=== PATIENT | male | born 1950 | race Asian ===

== ENCOUNTER 2018-12-18 10:11 | Observation (INO) | payer MEDICARE ==
[~2018-12-18] VITALS: Ht 165.1 cm; Wt 67.6 kg
[~2018-12-18 10:11] MED LIST: CATAPRES-TTS 11 EACH TOP; FEOSOL325 MG PO; FUROSEMIDE40 MG PO; Hydralazine Hcl PO; LISINOPRIL2.5 MG PO; PANTOPRAZOLE SO40 MG PO; TRANDATE100 MG PO; WARFARIN SODIU2.5 MG PO
[2018-12-18] MEDS ORDERED: FUROSEMIDE INJ 10 MG/ML 10 ML VIAL IV NR (10:45)
[2018-12-18] MEDS ORDERED: NITROGLYCERIN 2% OINT 1 GM PKT TOP ONE (10:45)
[2018-12-18] MEDS ORDERED: NIFEDIPINE 10 MG CAP PO NR (11:00)
[2018-12-18 11:11] LABS: BASOPHILS % 0.6 % (0.0-1.0); EOSINOPHILS # (AUTO) 0.6 (0.0-0.4); EOSINOPHILS % 8.4 % (0.0-6.0); HEMATOCRIT 33.3 % (38.2-49.6); HEMOGLOBIN 9.6 g/dL (14.0-18.0); LYMPHOCYTES # (AUTO) 0.9 (1.0-3.2); LYMPHOCYTES % 13.3 % (18.0-39.1); MEAN CORPUSCULAR HEMOGLOBIN 29.8 pg (28-32); MEAN CORPUSCULAR HGB CONC 28.8 g/dL (31-35); MEAN CORPUSCULAR VOLUME 103.4 fL (81-99); MONOCYTES # (AUTO) 0.4 (0.2-0.8); MONOCYTES % 6.1 % (4.4-11.3); NEUTROPHILS % 71.3 % (38.7-80.0); PLATELET COUNT 157 x10e3/uL (140-360); RED BLOOD COUNT 3.22 x10e6/uL (4.3-5.7); RED CELL DISTRIBUTION WIDTH 15.5 % (11.7-14.4)
[2018-12-18 11:30] LABS: ANION GAP 22.5 mmol/L (8-16); CALCIUM 10.4 mg/dL (8.4-10.2); CREATININE, SERUM 12.61 mg/dL (0.72-1.25); POTASSIUM 5.5 mmol/L (3.5-5.1)
--- NOTE | 2018-12-18 11:50 | Diagnostic Imaging Report ---
Frontal and lateral views of the chest. HISTORY: Shortness of breath, breathing distress COMPARISON: None available. DISCUSSION: Lungs and pleura: Bilateral diffuse increased interstitial and airspace opacities, left greater than right. [place] opacity at the left lower thorax with adjacent atelectasis. Underlying pathology could be obscured. Heart and mediastinum: The cardiac silhouette is predominantly obscured. Bones and soft tissues: A metallic stent projects at the superior aspect of the mediastinum. IMPRESSION: 1. Diffusely increased interstitial and airspace opacities, most notably at the left mid to lower lung. Differential considerations include asymmetric pulmonary edema, multifocal pneumonia, and/or aspiration. 2. Moderate left pleural effusion with adjacent prominent atelectasis. 3. Recommend short term follow up routine PA and lateral chest radiographs, in 6-8 weeks, to evaluate for resolution. Signed by: Dr. Fredy Swanson D.O., M.M.M. on 12/18/2018 11:47 AM
[2018-12-18 12:28] LABS: CREATINE KINASE MB 2.4 ng/mL (0-5.0)
--- NOTE | 2018-12-18 12:53 | NUR ---
SPOKE WITH LAURIE AT [facility] TO INITIATE STAT DIALYSIS TREATMENT, INFORMED THAT DR MONDRAGON NEEDS [facility] NURSE TO CALL HIM FOR FURTHER ORDERS. CALLED #[phone]
[2018-12-18] MEDS ORDERED: CALCIUM ACETAT667 M1 PO (13:39)
[2018-12-18] MEDS ORDERED: RENAGEL800 MG PO (13:39)
[2018-12-18] MEDS ORDERED: CLONIDINE HCL0.2 MG PO (13:39)
[2018-12-18] MEDS ORDERED: ESIDRIX25 MG PO (13:39)
[2018-12-18] MEDS ORDERED: LOSARTAN POTAS100 MG PO (13:39)
[2018-12-18] MEDS ORDERED: AMLODIPINE BESY10 MG PO (13:39)
--- NOTE | 2018-12-18 14:57 | NUR ---
RECEIVED CALL FROM HD NURSE, STATED HE WAS ON HIS WAY.
[2018-12-18] MEDS ORDERED: SODIUM CHLORIDE FLUSH 10 ML SYR INJ PRN (16:00)
--- OUTSIDE RECORDS SUMMARY | 2018-12-18 16:02 | XMS REPORT ---
Author Author [facility] Address Unknown Phone Unavailable Care Team Providers Care Vascular Radiologist Name Role Phone Becca AHUAJ Unavailable Unavailable Problems This patient has no known problems. Allergies, Adverse Reactions, Alerts This patient has no known allergies or adverse reactions. Medications This patient has no known medications. Results Test Description Test Time Test Comments Text Results Atomic Results Result Comments CHEST 2 VIEWS 2018-12-18 11:42:00 [place] [address] Patient Name: VANIA LEIGH MR #: [id number] : 1950 Age/Sex: 68/M Req #: [id number] Adm Physician: Ordered by: ELSIE AHUJA MD Report #: [id number] Location: ER Room/Bed: Procedure: [id number] DX/CHEST 2 VIEWS Exam Date: 12/18/18 Exam Time: 1053 REPORT STATUS: Signed Frontal and lateral views of the chest. HISTORY: S hortness of breath, breathing distress COMPARISON: None available. DISCUSSION: Lungs and pleura: Bilateral diffuse increased interstitial and airspace opacities, left greater than right. [place] opacity at the left lower thorax with adjacent atelectasis. Underlying pathology could be obscured. Heart and mediastinum: The cardiac silhouette is predominantly obscured. Bones and soft tissues: A metallic stent projects at the superior aspect of the mediastinum. IMPRESSION: 1. Diffusely increased interstitial and airspace opacities, most notably at the left mid to lower lung. Differential considerations include asymmetric pulmonary edema, multifocal pneumonia, and/or aspiration. 2. Moderate left pleural effusion with adjacent prominent atelectasis. 3. Recommend short term follow up routine PA and lateral chest radiographs, in 6- 8 weeks, to evaluate for resolution. Signed by: Dr. Nathalie Swanson D.O., M.M.M. on 12/18/2018 11:47 AM Dictated By: NATHALIE SWANSON DO [id number] Transcribed By: FABIÁN on 12/18/18 1147 COPY TO: ELSIE AHUJA MD
--- NOTE | 2018-12-18 16:45 | NUR ---
Patient arrived from ER via stretcher with multiple family members at the bedside. Patient is awake and alertx3, very pleasant and in NAD. Per patient he missed his dialysis treatment and started feeling SOB at home. POC discussed. Pt instructed to call for assistance as needed and verbalized understanding. Patient and family aware we are waiting on dialysis nurse to arrive to start treatment. Per she administered Clonidine 0.1mg PO, Losartan 100mg PO, and HCTZ 25mg PO prior to coming over to the room. educated on not administering any medications without MD authorizing them.
[2018-12-18 17:00] VITALS: BP 190/90
[2018-12-18 17:02] VITALS: BP 190/89
--- NOTE | 2018-12-18 17:06 | NUR ---
Dialysis nurse on unit, aware of patient needing dialysis.
[2018-12-18] MEDS ORDERED: CLONIDINE HCL0.1 MG PO ×2 (18:30)
[2018-12-18] MEDS ORDERED: RENA-VITE RX T1 EACH PO (18:30)
[2018-12-18] MEDS ORDERED: DOXAZOSIN MESYLA2 MG PO (18:30)
--- NOTE | 2018-12-18 19:00 | NUR ---
Report and rounds completed. Patient in bed in high semi-lujan position getting hemodialysis with dialysis nurse at bedside. Call light within reach. Will continue to monitor.
[2018-12-18 19:14] LABS: INR 1.09; PROTHROMBIN TIME 14.6 seconds (11.9-14.5)
[2018-12-18 19:15] LABS: PARTIAL THROMBOPLASTIN TIME 43.8 seconds (23.8-35.5)
[2018-12-18 19:26] LABS: CREATINE KINASE MB 2.2 ng/mL (0-5.0)
[2018-12-18 20:00] VITALS: BP 171/94
--- NOTE | 2018-12-18 20:03 | NUR ---
Call To Dr Martínez, Patient reports headache 02/20 and no pain medication. Tylenol 650 mg po Q 6 hrs PRN pain, [place] 5/325 mg po Q 6 hrs PRN pain. Updated patient on new orders.
[2018-12-18] MEDS ORDERED: HYDROCODONE/APAP 5MG-325MG TAB PO PRN (20:15)
[2018-12-18] MEDS: DOXAZOSIN MESYLATE 2 MG TAB PO SCH (20:37)
[2018-12-18] MEDS: ACETAMINOPHEN 325 MG TAB PO PRN (20:38)
[2018-12-18] MEDS ORDERED: CLONIDINE HCL 0.1 MG TAB PO SCH (21:00)
--- NOTE | 2018-12-18 22:13 | NUR ---
Spoke with Dr Martínez for PRN blood pressure medication, BP 177/94, 68 after scheduled meds. Hydralazine 10mg IV Q 4 hrs PRN SBP > 180.
[2018-12-18] MEDS ORDERED: HYDRALAZINE HCL 20 MG/ML VIAL IV PRN (22:30)
[2018-12-19] VITALS (7 sets, daily range): BP systolic 163–197; BP diastolic 83–100
[2018-12-19] MEDS: ACETAMINOPHEN 325 MG TAB PO PRN (02:35)
--- NOTE | 2018-12-19 04:10 | NUR ---
Tele called and stated HR dropped down to 38. Tele checked and green lead off. Reapplied. HR back up to 50's. Will continue to monitor closely.
[2018-12-19 04:40] LABS: ANION GAP 16.9 mmol/L (8-16); CALCIUM 9.1 mg/dL (8.4-10.2); CREATININE, SERUM 9.32 mg/dL (0.72-1.25); POTASSIUM 4.9 mmol/L (3.5-5.1)
[2018-12-19 04:52] LABS: CREATINE KINASE MB 1.7 ng/mL (0-5.0)
--- NOTE | 2018-12-19 05:35 | NUR ---
to nurses station, stating " I think it is hydralazine that gives him a headaches." Patient assessed BP 197/88, 63. Patient states " my headache is worse because I think the meds caused my headache to be worse." Will medicate for pain and continue to monitor.
--- NOTE | 2018-12-19 06:15 | Diagnostic Imaging Report ---
Examination: Single AP view of the chest. COMPARISON: 12/18/2018 INDICATION: Effusion DISCUSSION: Lines/tubes: Vascular stent. Lungs: Stable left pleural effusion with adjacent atelectasis. Additional pathology may be obscured. Pulmonary venous congestion, decreased. Heart and mediastinum: Heart is enlarged. Bones and soft tissues: No acute bony abnormalities. IMPRESSION: Stable left effusion with adjacent atelectasis. Additional pathology may be obscured. Pulmonary venous congestion, decreased. Signed by: Dr. Luis Felipe Roberts M.D. on 12/19/2018 6:11 AM
--- NOTE | 2018-12-19 06:31 | NUR ---
Tele called and HR dropped down into 40's. Celestino lead off, reapplied lead. HR in 60's. Will continue to monitor.
[2018-12-19 06:45] LABS: BASOPHILS % 0.4 % (0.0-1.0); EOSINOPHILS # (AUTO) 0.6 (0.0-0.4); EOSINOPHILS % 11.9 % (0.0-6.0); HEMATOCRIT 23.5 % (38.2-49.6); HEMOGLOBIN 7.7 g/dL (14.0-18.0); LYMPHOCYTES # (AUTO) 0.9 (1.0-3.2); LYMPHOCYTES % 17.8 % (18.0-39.1); MEAN CORPUSCULAR HEMOGLOBIN 29.7 pg (28-32); MEAN CORPUSCULAR HGB CONC 32.8 g/dL (31-35); MEAN CORPUSCULAR VOLUME 90.7 fL (81-99); MONOCYTES # (AUTO) 0.4 (0.2-0.8); MONOCYTES % 8.8 % (4.4-11.3); NEUTROPHILS % 60.9 % (38.7-80.0); PLATELET COUNT 155 x10e3/uL (140-360); RED BLOOD COUNT 2.59 x10e6/uL (4.3-5.7); RED CELL DISTRIBUTION WIDTH 14.9 % (11.7-14.4)
[2018-12-19] MEDS: CALCIUM ACETATE 667 MG GELCAP PO SCH ×3 (08:00→17:00)
--- NOTE | 2018-12-19 08:25 | NUR ---
Notified Dr Martínez regarding HR dropping to 30, new consult to Dr Garcia, patient not in any distress
[2018-12-19] MEDS ORDERED: SODIUM CHLORIDE 0.9% 1000ML 1,000 ML ONE (08:54)
[2018-12-19] MEDS ORDERED: CLONIDINE HCL 0.2 MG TAB PO SCH (09:00)
[2018-12-19] MEDS: FOLIC ACID/CYANOCOB/PYRIDOXINE TAB PO SCH (09:00)
[2018-12-19] MEDS ORDERED: AMLODIPINE BESYLATE 10 MG TAB PO SCH (09:00)
[2018-12-19] MEDS: LOSARTAN POTASSIUM 100 MG TAB PO SCH (09:00)
[2018-12-19] MEDS: NIFEDIPINE CR 30 MG TAB PO SCH ×2 (09:30→14:30)
[2018-12-19 11:22] LABS: THYROID STIMULATING HORMONE 3.66 uIU/mL (0.350-4.940)
--- NOTE | 2018-12-19 11:51 | History and Physical ---
CHIEF COMPLAINT: Shortness of breath and pulmonary edema. HISTORY OF PRESENT ILLNESS: This gentleman is a 68-year-old male with past medical history of ESRD on dialysis, anemia of ESRD, secondary hyperparathyroidism, uncontrolled hypertension, who comes into the ED with complaints of shortness of breath that began yesterday. The patient reports he is a Wednesday, Wednesday, Wednesday dialysis patient, he missed dialysis on Wednesday due to a son's wedding and presented back into our ER due to shortness of breath and respiratory distress. The patient received hemodialysis last night with increased ultrafiltration. Today, the patient reports having some increased shortness of breath and he is currently receiving hemodialysis. The patient's blood pressure is extremely elevated and medications were adjusted accordingly. He did develop some bradycardia last night in which Cardiology now has been consulted. The patient is seen and evaluated at bedside on the medical floor and he is currently doing much better. He is on nasal cannula. He is not short of breath, but he is still on oxygen, which he is not at home. REVIEW OF SYSTEMS: Pertinent positives: He had bradycardia and shortness of breath. Pertinent negatives: Denies any chest pain, palpitation, nausea, vomiting, diarrhea, dysuria, hematuria, frequency, urgency, lightheadedness, dizziness, abdominal pain, headache, cough, congestion, fever, or any other complaints. The rest of 14-point review of systems have been reviewed with the patient and are negative. ALLERGIES: NO KNOWN DRUG ALLERGIES. HOME MEDICATIONS: Furosemide 40 mg daily; hydrochlorothiazide 25 mg daily; amlodipine 10 mg daily; PhosLo 667 mg two tabs p.o. t.i.d. with meals; clonidine 0.1 mg in the morning, 0.1 mg at bedtime, and 0.2 mg in the afternoon; doxazosin 2 mg at bedtime; losartan 100 mg daily. He also takes vitamin B complex. PAST MEDICAL HISTORY: ESRD on dialysis, hypertension, anemia of ESRD, secondary hyperparathyroidism. PAST SURGICAL HISTORY: Has left AV fistula creation. FAMILY HISTORY: Hypertension and diabetes. SOCIAL HISTORY: No drugs. No alcohol. Does not smoke. Lives . He is . PHYSICAL EXAMINATION: VITAL SIGNS: Temperature is 98.6, pulse 70, respiratory rate is 18, blood pressure is 193/92, and his pulse ox is 96% on nasal cannula. GENERAL: Not in acute distress. Alert and oriented x3. Cooperative on examination. HEENT: Head is normocephalic and atraumatic. Eyes; pupils are equal, round, and reactive to light bilaterally. Extraocular movements are intact bilaterally. Throat, no evidence of NECK: Supple. Good range of motion. PULMONARY: Clear to auscultation bilaterally. No wheezing, no rales, no rhonchi, no crackles appreciated. CARDIOVASCULAR: Positive S1, S2. No murmurs, rubs, or gallops appreciated. NEUROLOGICAL: Cranial nerves 2 through 12 grossly intact. No evidence of any neurological deficits on exam. SKIN: Intact. Warm to touch. Good cap refill. PSYCHIATRIC: Normal affect and mood. EXTREMITIES: No edema. Good range of motion throughout. LABORATORY DATA: Lab findings show white count is 4.8, hemoglobin is 7.7, hematocrit is 23.5, his platelets are 155. His coagulation; PT 14, INR 1, PTT 43. Chemistry; sodium is 141, potassium 4.9, chloride 100, bicarb 29, anion gap of 16, BUN is 35, creatinine is 9.3, his glucose is 78, calcium is 9.1. His troponins were all negative x3. CK was 110. MICROBIOLOGY: None. IMAGING STUDIES: Chest x-ray this morning shows some pulmonary venous congestion, which has decreased. His chest x-ray on 12/18/2018 shows evidence of pulmonary edema, moderate left pleural effusion seen. IMPRESSION: 1. Respiratory distress secondary to pulmonary edema secondary to missing hemodialysis. 2. End-stage renal disease, on dialysis. 3. Anemia of end-stage renal disease. 4. Uncontrolled hypertension. 5. Bradycardia. PLAN: The patient received hemodialysis last night with increased ultrafiltration, he is currently receiving dialysis as we speak. Nephrology was consulted and they will manage the dialysis. In relation to his high blood pressure, medications were adjusted accordingly. Clonidine is likely causing a rebound hypertension which started nifedipine XL 60 mg daily and held the clonidine and resume the rest of the antihypertensive that he takes at home. We will monitor that very closely. He is on p.r.n. hydralazine. His heart rate also dropped into the 30s last night, this was informed to me by the nursing staff. I will go ahead and consult with Cardiology for further evaluation. The patient is now on beta-blockers based on the medication reconciliation form. Otherwise, the patient will likely be here overnight to be monitored very closely in terms of his heart rate and blood pressure. He continues to still be on oxygen despite two dialysis treatments. In the even of continued shortness of breath, we will get a CT scan of his chest to further evaluate. MD TITA Golden/TREVOR /[id number]
[2018-12-19] MEDS ORDERED: EPOETIN ALFA 10000 UNIT/ML VIAL SC SCH (15:45)
[2018-12-19] MEDS ORDERED: CLONIDINE HCL 0.1 MG TAB PO SCH (16:30)
--- NOTE | 2018-12-19 17:07 | Consultation ---
DATE OF CONSULTATION: 12/19/2018 REASON FOR CONSULTATION: Bradycardia. HISTORY OF PRESENT ILLNESS: This is a 68-year-old male with history of end- stage renal disease since 2015, on HD therapy Wednesday, Wednesday, and Wednesday with Dr. Verde, hypertension. The patient presents to [facility] with apparent complaints of shortness of breath for about 2 weeks chest x-ray noted with pulmonary edema. The patient is on dialysis. However, this morning, the patient was noted with periods of bradycardia and heart rates in the 30s. Therefore, cardiology was consulted to evaluate the patient. The patient is seen in room, in no acute distress, on HD therapy. Reports that for the past 2 weeks plus, he has been more short of breath with orthopnea, lower extremity edema. So, he came to the hospital for further evaluation. The patient denies any chest pains, however, positive for shortness of breath. Positive orthopnea. Positive for lower extremity edema. Tele was noted and reviewed. Does have episodes of sinus olga with first-degree AV block, however, no pauses were noticed. PAST MEDICAL HISTORY: End-stage renal disease since 2016 on Wednesday, Wednesday, Wednesday schedule and hypertension. PAST SURGICAL HISTORY: Left AV fistula. SOCIAL HISTORY: He is . 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 Denies any alcohol use or tobacco use. FAMILY HISTORY: He reports mother at age of 82 of unknown reasons. Father at age of 56, apparently complications of "stomach issues." HOME MEDICATIONS: Include amlodipine 10 mg once a day, calcium acetate two tablets p.o. t.i.d. Wednesday, Wednesday, clonidine 0.1 mg t.i.d., Lasix 40 mg daily, doxazosin 2 mg p.o. daily, losartan 100 mg p.o. daily, hydrochlorothiazide 25 mg p.o. daily. REVIEW OF SYSTEMS: GENERAL: Positive for weight gain, positive fatigue, weakness. Denies any fevers, chills, night sweats. SKIN: No rashes, sores, or lumps. HEENT: Denies any nausea, vomiting, vision changes, blurred vision, double vision, earaches, epistaxis, hoarseness, sore throat, swollen neck. CARDIAC: Denies any chest pain. Positive for dyspnea on exertion. Positive for orthopnea. Positive for PND. Positive for lower extremity edema. RESPIRATORY: Positive for shortness of breath. Denies any coughing, wheezing, hemoptysis. GI: Reports good appetite. Denies any nausea or vomiting, any hematemesis, melena, hematochezia. URINARY: Denies any urgency, polyuria, hematuria, dysuria. VASCULAR: Positive for lower extremity edema. MUSCULOSKELETAL: Positive for generalized joint pains. NEUROLOGIC: Positive for numbness, tingling in lower extremities. Denies any blackouts, fainting, or seizures. HEMATOLOGIC: Denies any anemia or easy bruising. ENDOCRINE: Denies any heat or cold intolerance, any polyuria, polydipsia, polyphagia. PHYSICAL EXAMINATION: VITAL SIGNS: Height 65 inches, 149 pounds, BMI 24. Temperature 98.6, pulse 78, respiratory rate 18, blood pressure 193/92, pulse ox 96% on 2 L nasal cannula. GENERAL: Appears stated age, reliable informant, in no acute distress. SKIN: No rashes or bruises noted. HEENT: Normocephalic. Pupils are equal and reactive. Extraocular movements intact. Trachea midline. Oral mucosa pink. NECK: Soft carotid bruit noted on the left side. No JVD noted. HEART: Regular rate and rhythm. Positive systolic murmur, loudest at the right upper sternal border. PMI about 4th, 5th intercostal space. LUNGS: Bilateral breath sounds with crackles noted. ABDOMEN: Soft, nontender, nondistended. No organomegaly noted. MUSCULOSKELETAL: Good muscle strength throughout. VASCULAR: +2 bilateral radial pulses, +1 DP/PT pulses bilaterally, +1 lower extremity edema. Also noted left AV fistula with bruit and thrill. NEUROLOGIC: Cranial nerves II through XII seem intact. LABORATORY DATA: White count 4, hemoglobin 7.7, hematocrit 23, platelets 155. Chemistry; sodium 141, potassium 4.9, chloride 100, BUN 35, creatinine 9.3. Troponin 0.08, 0.1, 0.1. Chest x-ray showing pulmonary congestion. EKG was sinus rhythm. ASSESSMENT: 1. Volume overloaded. 2. End-stage renal disease, on HD therapy. 3. Hypertension. 4. Anemia. 5. Bradycardia with intermittent first-degree AV block. PLAN: 1. The patient presents with volume overload, on HD therapy being dialyzed currently noted with periods of bradycardia. Tele reviewed. Heart rates in the upper 30s. Appears to be sinus rhythm with a first-degree AV block. The patient denies any dizziness, lightheadedness, and passing out or syncope episodes. 2. We will discontinue his clonidine and avoid IV blocking agents. 3. We will go ahead and get a TSH. 4. We will obtain echo to evaluate heart function and structure and does seem to have a systolic murmur. 5. Continue telemonitoring. Thank you very much for this consult. We will follow the patient and adjust cardiac therapy as clinical course dictates. SEEN AND EXAMINED DISCUSS WITH PATIENT AND Dictated by Jeff Osman, SUNIL Laila Garcia MD DC/TREVOR /[id number] CIRO
--- NOTE | 2018-12-19 17:27 | Consultation ---
DATE OF CONSULTATION: HISTORY OF PRESENT ILLNESS: This is a 68-year-old male with end-stage renal disease, on hemodialysis Wednesday, Wednesday, and Wednesday, who comes into the emergency room complaining of shortness of breath. The patient missed his dialysis on Wednesday. Currently, he is here with shortness of breath. Also, he was found to be bradycardic. PAST MEDICAL HISTORY: 1. ESRD, on hemodialysis. 2. Hypertension. 3. Secondary hyperparathyroidism. ALLERGIES: NO KNOWN DRUG ALLERGIES. PAST SURGICAL HISTORY: AV access placement. FAMILY HISTORY: Hypertension and type 2 diabetes mellitus. CURRENT MEDICATIONS: Include Lasix, hydrochlorothiazide, amlodipine, PhosLo, clonidine, doxazosin, losartan. SOCIAL HISTORY: No smoking. No alcohol. No drugs. REVIEW OF SYSTEMS: Positive shortness of breath. No chest pain. No blood in the stool. No blood in the urine. No sensory loss. No motor loss. No skin changes. No enlarged lymph nodes. No chest pain. No change in vision. No change basically otherwise all review of systems was negative except for shortness of breath. PHYSICAL EXAMINATION: VITAL SIGNS: Blood pressure 163/87, pulse 70. GENERAL: Alert, following commands HEENT: Pupils are equal and reactive to light and accommodation. NECK: No JVD. No bruits. LUNGS: No rhonchi. No rales. HEART: Regular rate and rhythm. No S3. No S4. ABDOMEN: Nontender, nondistended. No hepatomegaly or splenomegaly. EXTREMITIES: No clubbing, no cyanosis, no edema. NEUROLOGIC: Cranial nerves 2 through 12 are grossly intact. Sensation intact. Motor intact. SKIN: No lesions. LABORATORY DATA: White count 4.8, hemoglobin is 7.7, hematocrit is 23.5. Sodium 141, potassium 4.9, chloride 100, creatinine 9.32. Chest x-ray; left effusion with adjacent atelectasis, pulmonary venous congestion, this was done at 6 in the morning. ASSESSMENT AND PLAN: 1. End-stage renal disease with volume overloaded secondary to the patient missing dialysis. The patient was dialyzed last night and today. 2. Anemia of chronic disease. The patient is on Epogen. If hemoglobin continue to decrease, we will need to evaluate. For now, we will check stool guaiac. 3. Bradycardia. Currently, Cardiology is consulted. 4. Hypertension. Currently better after ultrafiltration. Nicholas Mcelroy MD MA/TREVOR /[id number]
--- NOTE | 2018-12-19 18:11 | NUR ---
patient up in bed talking to visitors, not in any distress, call light in reach
--- NOTE | 2018-12-19 19:00 | NUR ---
Report and rounds completed. Patient in bed with visitors at bed side. Call light within reach. Will continue to monitor.
[2018-12-19] MEDS: DOXAZOSIN MESYLATE 2 MG TAB PO SCH (21:44)
[2018-12-20 00:29] VITALS: BP 157/77
[2018-12-20 04:30] VITALS: BP 152/81
[2018-12-20 05:23] LABS: BASOPHILS % 0.4 % (0.0-1.0); EOSINOPHILS # (AUTO) 0.7 (0.0-0.4); EOSINOPHILS % 14.4 % (0.0-6.0); HEMATOCRIT 24.7 % (38.2-49.6); LYMPHOCYTES % 21.8 % (18.0-39.1); MEAN CORPUSCULAR HEMOGLOBIN 29.7 pg (28-32); MEAN CORPUSCULAR HGB CONC 32.4 g/dL (31-35); MEAN CORPUSCULAR VOLUME 91.8 fL (81-99); MONOCYTES # (AUTO) 0.5 (0.2-0.8); MONOCYTES % 10.8 % (4.4-11.3); NEUTROPHILS # (AUTO) 2.5 (2.1-6.9); NEUTROPHILS % 52.4 % (38.7-80.0); PLATELET COUNT 153 x10e3/uL (140-360); RED BLOOD COUNT 2.69 x10e6/uL (4.3-5.7); RED CELL DISTRIBUTION WIDTH 14.7 % (11.7-14.4)
[2018-12-20 05:42] LABS: ANION GAP 11.1 mmol/L (8-16); CALCIUM 9.3 mg/dL (8.4-10.2); CREATININE, SERUM 6.72 mg/dL (0.72-1.25); POTASSIUM 4.1 mmol/L (3.5-5.1)
--- NOTE | 2018-12-20 06:14 | Diagnostic Imaging Report ---
EXAMINATION: CHEST 2 VIEWS INDICATION: ^pleural effusion COMPARISON: Chest x-ray 12/19/2018. 12/18/2018. FINDINGS: PA and lateral views TUBES and LINES: Left subclavian stent seen in the midline. LUNGS: Lungs are well inflated. Mild right basilar atelectasis/consolidation. Dense left basilar atelectasis and/or consolidation. Improving central pulmonary venous congestion. PLEURA: Stable small to moderate left pleural effusion. HEART AND MEDIASTINUM: Cardiac size is moderately enlarged. BONES AND SOFT TISSUES: No acute osseous lesion. Soft tissues are unremarkable. UPPER ABDOMEN: No free air under the diaphragm. IMPRESSION: 1. Unchanged bibasilar atelectasis and/or consolidation, especially in the left lung base. Stable small left pleural effusion. 2. Improving central pulmonary venous congestion. Signed by: Dr. Migue Iqbal M.D. on 12/20/2018 6:10 AM
[2018-12-20 07:31] VITALS: BP 176/92
[2018-12-20] MEDS: CALCIUM ACETATE 667 MG GELCAP PO SCH (09:09)
[2018-12-20] MEDS: LOSARTAN POTASSIUM 100 MG TAB PO SCH (09:09)
[2018-12-20] MEDS: NIFEDIPINE CR 30 MG TAB PO SCH (09:09)
[2018-12-20] MEDS: FOLIC ACID/CYANOCOB/PYRIDOXINE TAB PO SCH (09:09)
[2018-12-20] MEDS ORDERED: DOCUSATE SODIUM 100 MG CAP PO PRN (10:45)
[2018-12-20] MEDS ORDERED: NIFEDIPINE ER30 M1 PO (11:19)
[2018-12-20 11:23] VITALS: BP 213/99
--- NOTE | 2018-12-20 12:20 | NUR ---
Rechecked BP Manually 170/80 p-68, not in any distress, patient refused any PRN BP medications, he stated its BP usually like this when he is not on Dialysis . md ch
[2018-12-20 12:25] VITALS: BP 168/70
--- NOTE | 2018-12-20 13:15 | NUR ---
patient discharged home, prescription given, IV canula removed with tip intact, not any distress o SOB, at bed side taking him home, [facility]
--- NOTE | 2018-12-20 16:54 | Discharge Summary ---
FINAL DISCHARGE DIAGNOSES: 1. Respiratory distress secondary to pulmonary edema after missing hemodialysis, now improved. 2. End-stage renal disease, on dialysis. 3. Anemia of end-stage renal disease. 4. Uncontrolled hypertension. 5. Bradycardia secondary to AV dale blockers from clonidine. CONSULTANTS: Cardiology and Nephrology. PHYSICAL EXAMINATION: VITAL SIGNS: Temperature is 97.9, pulse 79, respiratory rate is 18, blood pressure 152/81, pulse ox is 96% on room air. LABORATORY DATA: Labs show white count 4.7, hemoglobin 8, hematocrit is 24.7, and platelets of 153. Chemistry; sodium 137, potassium 4.9, chloride 99, bicarb 31, anion gap 11, BUN 26, creatinine 6.7, glucose is 88, calcium is 9.3, LDL 68, TSH is 3.6. MICROBIOLOGY: None. IMAGING STUDIES: Chest x-ray on admission showed pulmonary edema. Repeat chest x-ray on 12/20/2018 shows small left stable effusion. Much improved central pulmonary venous congestion. HOSPITAL COURSE: This is a 68-year-old male with known history of ESRD on dialysis, uncontrolled hypertension, who presented after complaints of shortness of breath after missing hemodialysis last Wednesday on his normal schedule due to a wedding. The patient was admitted and Nephrology was consulted. The patient received dialysis treatments while here in the hospital with no issues. He had increased ultrafiltration. In relation to his blood pressures, medications were adjusted accordingly with much improved blood pressure prior to being discharged home. He was found to be in sinus bradycardia in which Cardiology was consulted. It was felt that the patient's clonidine is likely leading to his underlying bradycardia and recommend discontinuing clonidine on discharge. The patient has been cleared by Cardiology and Nephrology for discharge home. The patient is doing well with no other issues. On the day of discharge, vital signs are stable, labs reviewed and stable. The patient seen, evaluated, and examined thoroughly on the day of discharge, no other complaints. The patient verbalized understanding and agreed with the plan of care, to follow up as an outpatient with the primary care physician in 1 week and the seaman officer in 2 weeks' time. The patient also advised to follow up tomorrow. MEDICATIONS: See med reconciliation form including nifedipine XL 60 mg daily. DISPOSITION: Home. CONDITION: Stable. DIET: Renal. In any event of new or worsening symptoms, the patient is advised to come back to the ED for further evaluation. Discharge summary took greater than 35 minutes. MD TITA Golden/TREVOR /[id number]
== END 2018-12-20 13:10 | disposition home or self-care (01) ==
LOC: ER 10:11 → ERHOLD 16:00 → IMCU 16:45
PROVIDERS: ADMIT Internal Medicine; ATTEND Internal Medicine
DX: E87.70 Fluid overload, unspecified (principal); I13.2 Hypertensive heart and chronic kidney disease with heart failure and with stage 5 chronic kidney disease, or end stage renal disease; N18.6 End stage renal disease; I50.9 Heart failure, unspecified; Z99.2 Dependence on renal dialysis; D63.1 Anemia in chronic kidney disease; N25.81 Secondary hyperparathyroidism of renal origin; Z83.3 Family history of diabetes mellitus; Z82.49 Family history of ischemic heart disease and other diseases of the circulatory system; R06.03 Acute respiratory distress; R00.1 Bradycardia, unspecified; I44.0 Atrioventricular block, first degree; Z91.15 Patient's noncompliance with renal dialysis
CPT/HCPCS: 36415 ×3; 71045; 71046 ×2; 80048 ×3; 80061 ×2; 82550 ×2; 82553 ×2; 84443; 84484 ×2; 85025 ×3; 85610; 85730; 86704; 86706; 86707; 90937; 93005; 93306; 99284; G0378 ×3; J0360; J1940; J7030; Q4081

== ENCOUNTER 2019-01-06 02:34 | Inpatient (IN) | payer MEDICARE ==
[~2019-01-06] VITALS: Ht 165.1 cm; Wt 60.9 kg
[~2019-01-06 02:34] MED LIST changes: +AMLODIPINE BESY10 MG PO; +CALCIUM ACETAT667 M1 PO; +CLONIDINE HCL0.1 MG PO; +CLONIDINE HCL0.2 MG PO; +DOXAZOSIN MESYLA2 MG PO; +ESIDRIX25 MG PO; +LOSARTAN POTAS100 MG PO; +NIFEDIPINE ER30 M1 PO; +RENA-VITE RX T1 EACH PO; +RENAGEL800 MG PO
[2019-01-06] MEDS ORDERED: NITROGLYCERIN 2% OINT 1 GM PKT ONE (02:44)
[2019-01-06] MEDS ORDERED: FUROSEMIDE INJ 10 MG/ML 4 ML VIAL ONE (02:44)
[2019-01-06] MEDS ORDERED: NITROGLYCERIN 2% OINT 1 GM PKT TOP ONE (02:45)
[2019-01-06] MEDS ORDERED: FUROSEMIDE INJ 10 MG/ML 10 ML VIAL IV ONE (02:45)
[2019-01-06] MEDS ORDERED: FUROSEMIDE INJ 10 MG/ML 2 ML VIAL ONE (02:46)
[2019-01-06 02:50] LABS: BASOPHILS % 0.1 % (0.0-1.0); EOSINOPHILS # (AUTO) 0.8 (0.0-0.4); EOSINOPHILS % 5.9 % (0.0-6.0); HEMOGLOBIN 8.5 g/dL (14.0-18.0); LYMPHOCYTES # (AUTO) 2.4 (1.0-3.2); LYMPHOCYTES % 17.9 % (18.0-39.1); MEAN CORPUSCULAR HEMOGLOBIN 30.4 pg (28-32); MEAN CORPUSCULAR HGB CONC 32.7 g/dL (31-35); MEAN CORPUSCULAR VOLUME 92.9 fL (81-99); MONOCYTES # (AUTO) 0.5 (0.2-0.8); MONOCYTES % 3.7 % (4.4-11.3); NEUTROPHILS # (AUTO) 9.8 (2.1-6.9); NEUTROPHILS % 71.6 % (38.7-80.0); PLATELET COUNT 263 x10e3/uL (140-360); RED CELL DISTRIBUTION WIDTH 14.6 % (11.7-14.4)
[2019-01-06 02:58] LABS: INR 1.05; PROTHROMBIN TIME 14.2 seconds (11.9-14.5)
[2019-01-06 02:59] LABS: PARTIAL THROMBOPLASTIN TIME 43.3 seconds (23.8-35.5)
[2019-01-06 03:44] LABS: ALBUMIN 3.6 g/dL (3.5-5.0); ALBUMIN/GLOBULIN RATIO 0.6 (0.8-2.0); ANION GAP 23.8 mmol/L (8-16); CALCIUM 10.3 mg/dL (8.4-10.2); CREATININE, SERUM 9.09 mg/dL (0.72-1.25); POTASSIUM 3.8 mmol/L (3.5-5.1)
[2019-01-06 03:51] LABS: CREATINE KINASE MB 1.3 ng/mL (0-5.0)
--- NOTE | 2019-01-06 03:54 | Diagnostic Imaging Report ---
EXAMINATION: CHEST SINGLE (PORTABLE) INDICATION: Worsening shortness of breath. COMPARISON: Chest x-ray 12/20/2018 FINDINGS: PA and lateral views TUBES and LINES: Left subclavian stent again observed. LUNGS: Bilateral alveolar pulmonary edema. PLEURA: Interval increase in left pleural effusion. Small right pleural effusion. No pneumothorax. HEART AND MEDIASTINUM: The cardiac silhouette is partially obscured, but is at least moderately enlarged. BONES AND SOFT TISSUES: No acute osseous lesion. Soft tissues are unremarkable. UPPER ABDOMEN: No free air under the diaphragm. IMPRESSION: 1. Bilateral alveolar pulmonary edema. 2. Interval increase in left pleural effusion, now moderate to large. Signed by: Dr. Eugenia Nevarez M.D. on 01/06/2019 3:51 AM
[2019-01-06] MEDS ORDERED: ONDANSETRON HCL INJ 2MG/ML 2ML 2 MG/ML VIAL IV PRN (04:15)
[2019-01-06] MEDS ORDERED: SODIUM CHLORIDE FLUSH 10 ML SYR INJ PRN (04:15)
[2019-01-06] MEDS ORDERED: HYDRALAZINE HCL 20 MG/ML VIAL IV PRN (04:15)
[2019-01-06] MEDS ORDERED: NITROGLYCERIN 2% OINT 1 GM PKT TOP SCH (06:00)
[2019-01-06 06:19] LABS: ABG PCO2 45 mmHg (41-51); ABG PH 7.35 (7.31-7.41)
[2019-01-06 06:20] LABS: ABG HCO3 25 mmol/L (23-28); ABG PO2 65 mmHg (80-105)
--- NOTE | 2019-01-06 07:30 | NUR ---
PER DR NICHOLAS ORDER CONSULT WITH DR Eugenia IBARRA
--- NOTE | 2019-01-06 07:30 | NUR ---
corrina contacted about dialysis
--- NOTE | 2019-01-06 10:30 | NUR ---
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 Found to have pleural effusion and CHF decompensation. Last HD was 2 days ago. PMH: HTN, acute resp failure, CHF, 3/6 systolic murmur, ESRD on HD, HTN, Bradycardia, iron-deficiency anemia, anemia, pleural effusion, PSx: HD access Allergies; see emr Fh/SH; ; no cigs. Meds; see MAR ROS: unreliable v/s; rev'd PE: BIPAP in place tired appearing anicteric ns1s2 REDUCED BS THROUGHOUT soft nt nd no e/t; left arm with bruit audible skin dry n. affect a&ox3; colon labs/med; revd A/P: Acute resp failure- bipap; lasix; HD pending ESRD- HD pending Left pleural effusion- diuretics/HD PUlmonary edema- same AECHF- same; echo HTN- restart home meds SCD; pepcid dispo:
[2019-01-06] MEDS ORDERED: ALBUTEROL/IPRATROPIUM 3 ML NEB NEB PRN (10:45)
[2019-01-06] MEDS: NITROGLYCERIN 2% OINT 1 GM PKT TOP SCH ×3 (11:45→23:26)
--- NOTE | 2019-01-06 11:53 | NUR ---
DR Rocio NICHOLAS IN ROOM WITH PT; PER DR Rocio NICHOLAS ORDER HYDRALAZINE 100 MG PO QHR AND PROCARDIA XL 30 MG PO Q12H ORDERS READ BACK AND CONFIRMED BY DR NICHOLAS
[2019-01-06] MEDS ORDERED: NIFEDIPINE CR 30 MG TAB PO SCH (12:00)
[2019-01-06 12:19] LABS: CREATINE KINASE MB 2.6 ng/mL (0-5.0)
--- NOTE | 2019-01-06 12:30 | NUR ---
SUE CONTACTED ABOUT DIALYSIS; PER DR PARRY SHE ORDERED STAT DIALYSIS; [facility] CURRENTLY NOT HERE FOR DIALYSIS
[2019-01-06] MEDS: CALCIUM ACETATE 667 MG GELCAP PO SCH ×2 (12:48→17:50)
[2019-01-06] MEDS: HYDRALAZINE HCL 25 MG TAB PO SCH ×2 (12:48→18:00)
--- NOTE | 2019-01-06 13:30 | NUR ---
SUE CONTACTED ABOUT ETA FOR DIALYSIS; TOLD THEY WOULD CALL BACK WITH ETA
--- NOTE | 2019-01-06 13:56 | NUR ---
SUE CONTACTED ABOUT ETA; NOT ON SITE FOR DIALYSIS; TOLD THEY WOULD CALL BACK WITH ETA; [place] [facility] NOTIFIED
--- NOTE | 2019-01-06 14:03 | NUR ---
SUE ON SITE FOR PT DIALYSIS STATES HE WAS UNAWARE IT WAS A STAT DIALYSIS
[2019-01-06] MEDS ORDERED: SODIUM CHLORIDE 0.9% 1000ML 1,000 ML IV ONE (14:30)
[2019-01-06] MEDS ORDERED: SODIUM CHLORIDE 0.9% 1000ML 1,000 ML ONE (14:32)
--- NOTE | 2019-01-06 15:34 | Consultation ---
DATE OF CONSULTATION: Pulmonary Critical Care Consultation CHIEF COMPLAINT: Dyspnea and pulmonary edema. HISTORY OF PRESENT ILLNESS: The patient is a 68-year-old man. He has a history of end-stage renal disease. He has uncontrolled hypertension as well. According to the family, he has had more difficulty breathing over the past 1 to 2 days. He has not had fevers. There is no phlegm production. When he came to the emergency department, he was found to have accelerated hypertension and required treatment with Procardia, hydralazine, and nitro paste. He also had a chest x-ray that showed pulmonary edema. He was started on BiPAP and dialysis has been arranged. PAST SURGICAL HISTORY: Status post AV fistula. PAST MEDICAL HISTORY: 1. Hypertension. 2. End-stage renal disease. 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 He is a lifelong nonsmoker. He is not a drinker. REVIEW OF SYSTEMS: The patient has no fever or headache. He is not complaining of neck pain. He has some dyspnea. He has minimal cough. He has no chest pain. He has no nausea or vomiting. He has no leg edema. PHYSICAL EXAMINATION: VITAL SIGNS: The patient is afebrile. The blood pressure is 199/97 and the pulse is 78. Saturation is 100% on a BiPAP. HEENT: Shows no facial swelling or erythema. The nasal mucosa is normal. Oropharynx is normal. LYMPHATIC: Shows no submandibular, cervical, or supraclavicular adenopathy. CARDIAC: Reveals regular rate and rhythm with normal S1 and S2. There are no murmurs or rubs. LUNGS: Auscultation of lungs reveals rhonchorous breath sounds and crackles in both lung walden. ABDOMEN: Soft, nontender. There is no rebound or guarding. EXTREMITIES: Show no leg edema or calf tenderness. There is no cyanosis or clubbing. SKIN: Shows no rashes. NEUROLOGIC: Shows no focal abnormalities. LABORATORY DATA: White blood cell count is 13.6 and hemoglobin is 8.5. The platelet count is 263. The BUN to creatinine ratio is 42-9.09 and the other electrolytes are within normal limits. Blood gas 7.35, 45, 65, and 25. RADIOGRAPHIC DATA: Chest x-ray shows bilateral pulmonary edema. IMPRESSION: 1. Acute respiratory failure secondary to volume overload. 2. Accelerated hypertension with pulmonary edema. 3. End-stage renal disease. PLAN: 1. Plan for emergent dialysis now. 2. Continue to treat blood pressure. 3. Monitor blood counts and electrolytes. 4. Case discussed with Dr. Teague and nursing staff. MD JAZMIN Lainez/JAQUELINEL /[id number]
--- NOTE | 2019-01-06 17:01 | NUR ---
DR NICHOLAS IN ROOM WITH PT
[2019-01-06 19:31] LABS: CREATINE KINASE MB 2.2 ng/mL (0-5.0)
[2019-01-06] MEDS: FUROSEMIDE INJ 10 MG/ML 4 ML VIAL IV SCH (22:25)
[2019-01-06] MEDS: NIFEDIPINE CR 30 MG TAB PO SCH (22:37)
[2019-01-06] MEDS: DOXAZOSIN MESYLATE 2 MG TAB PO SCH (22:37)
[2019-01-06 22:45] VITALS: BP 185/98
--- NOTE | 2019-01-06 23:22 | Consultation ---
DATE OF CONSULTATION: 01/06/2019 Renal consultation. ATTENDING PHYSICIAN: Dr. Shlomo Teague. REASON FOR CONSULTATION: End-stage renal disease and volume overload. HISTORY OF PRESENT ILLNESS: A 68-year-old male with end-stage renal disease, on hemodialysis Wednesday, Wednesday, Wednesday, who presented to [facility] with 1-day history of shortness of breath. The patient has not missed any dialysis and was doing well until a day prior to dialysis when he became progressively more short of breath. The patient was placed on BiPAP in the emergency room. Chest x-ray showed bilateral pulmonary edema. Currently, the patient is on hemodialysis. His is at bedside. REVIEW OF SYSTEMS: As above. No fevers, no chills, no nausea, no vomiting. No chest pain. All other systems negative. PAST MEDICAL HISTORY: 1. End-stage renal disease, on hemodialysis Wednesday, Wednesday, Wednesday at [facility]. 2. Hypertension. 3. Anemia secondary to chronic kidney disease. 4. Secondary hyperparathyroidism. PAST SURGICAL HISTORY: Av access placement. SOCIAL HISTORY: No tobacco. No alcohol. No IV drugs. FAMILY HISTORY: Strong family history of end-stage renal disease and hypertension. ALLERGIES: NO KNOWN DRUG ALLERGIES. CURRENT MEDICATIONS: See list. PHYSICAL EXAMINATION: VITAL SIGNS: Blood pressure 159/78, was 237/125. Pulse 80, respiratory rate 26, and temperature 98. GENERAL: No apparent distress. HEENT: Oropharynx clear. No scleral icterus. No peripheral edema on BiPAP. NECK: Supple. Elevated jugular venous pressure. CHEST: Decreased breath sounds at bases anteriorly bilaterally. CARDIOVASCULAR: Regular rhythm. ABDOMEN: Soft. Positive bowel sounds. No tenderness. No rebound. EXTREMITIES: Trace leg edema. LABORATORY DATA: Sodium 139, potassium 2.8, chloride 97, BUN 42, creatinine 9.09. Troponin 0.066. BNP 3114, albumin 3.6. IMAGING: Bilateral vascular congestion on chest x-ray. ASSESSMENT AND PLAN: 1. End-stage renal disease with volume overload. The patient is receiving hemodialysis. We will continue Wednesday, Wednesday, Wednesday. 2. Volume overload. We will ultrafiltrate 4-5 L with dialysis. The patient may need treatment again in the morning. We will evaluate at that time. 3. Anemia secondary to chronic kidney disease. We will continue the patient on Epogen. 4. Lytes acceptable. 5. Hypertension. We will follow after dialysis and resume home medications. MD ETHEL Maya/TREVRO /[id number]
[2019-01-06] MEDS: EPOETIN ALFA 10000 UNIT/ML VIAL SC SCH (23:26)
[2019-01-06 23:28] VITALS: BP 175/91
[2019-01-06 23:35] VITALS: BP 175/91
[2019-01-06 23:45] VITALS: BP 175/91
[2019-01-07] VITALS (9 sets, daily range): BP systolic 129–166; BP diastolic 74–104
[2019-01-07] MEDS: HYDRALAZINE HCL 25 MG TAB PO SCH ×4 (00:25→17:03)
--- NOTE | 2019-01-07 02:27 | NUR ---
Report received from ER nurse Will. Patient admitted in unit @2230 by stretcher. Patient received alert/orientedx3. Denied pain. Patient came with continuing BIPAP,Spo2 maintained 100%. Patient at the bedside. Head to toe assessment completed. No skin breakdown noted. Bed in lower position,locked. Call cordova within reach. Will continue to monitor.
--- NOTE | 2019-01-07 03:45 | NUR ---
Disconnected BIPAP at this time. Connected to 40% venturi mask with 12liters oxygen,Spo2 maintained 99%. Patient tolerated well. Will continue to monitor.
[2019-01-07] MEDS: NITROGLYCERIN 2% OINT 1 GM PKT TOP SCH ×4 (04:51→22:06)
[2019-01-07 05:34] LABS: BASOPHILS % 0.3 % (0.0-1.0); EOSINOPHILS # (AUTO) 0.2 (0.0-0.4); EOSINOPHILS % 2.4 % (0.0-6.0); HEMATOCRIT 23.1 % (38.2-49.6); HEMOGLOBIN 7.5 g/dL (14.0-18.0); LYMPHOCYTES # (AUTO) 0.6 (1.0-3.2); LYMPHOCYTES % 7.8 % (18.0-39.1); MEAN CORPUSCULAR HGB CONC 32.5 g/dL (31-35); MEAN CORPUSCULAR VOLUME 92.4 fL (81-99); MONOCYTES # (AUTO) 0.4 (0.2-0.8); MONOCYTES % 5.4 % (4.4-11.3); NEUTROPHILS % 83.4 % (38.7-80.0); PLATELET COUNT 196 x10e3/uL (140-360); RED CELL DISTRIBUTION WIDTH 14.9 % (11.7-14.4)
[2019-01-07 05:57] LABS: ALBUMIN 2.9 g/dL (3.5-5.0); ALBUMIN/GLOBULIN RATIO 0.6 (0.8-2.0); ANION GAP 16.3 mmol/L (8-16); CALCIUM 9.3 mg/dL (8.4-10.2); CREATININE, SERUM 5.71 mg/dL (0.72-1.25); POTASSIUM 4.3 mmol/L (3.5-5.1)
[2019-01-07] MEDS ORDERED: POTASSIUM CHLORIDE 20 MEQ TAB CR PO STA (06:36)
--- NOTE | 2019-01-07 07:05 | NUR ---
Report given to AM RN,walking round done.
--- NOTE | 2019-01-07 07:30 | NUR ---
LEFT MESSAGE FOR DR. MAYES OPEN HEARTH WORKER FOR DR. PARRY TO CLARIFY IF PT WILL NEED DIALYSIS TODAY. AWAITING CALL BACK.
--- NOTE | 2019-01-07 07:36 | NUR ---
RECEIVED CALL BACK FROM DR. MAYES STATES PT WILL HAVE DIALYSIS AGAIN TODAY. NOTIFIED REGARDING HGB 7.5. NO NEW ORDERS RECEIVED.
--- NOTE | 2019-01-07 07:40 | NUR ---
NOTIFIED DR. NICHOLAS REGARDING HGB 7.5. RECEIVED ORDERS FOR RECHECK HH AT 1800.
--- NOTE | 2019-01-07 07:45 | NUR ---
SPOKE TO JAMAAL AT [facility] NOTIFIED PT WILL NEED DIALYSIS TODAY. REQUESTED CALL BACK FROM DIALYSIS NURSE. AWAITING CALL BACK.
--- NOTE | 2019-01-07 07:52 | NUR ---
DIALYSIS NURSE PRESENT. MADE AWARE PT WILL NEED DIALYSIS TODAY.
--- NOTE | 2019-01-07 08:30 | NUR ---
PER DIALYSIS NURSE, SHE HAS CALLED IN ANOTHER NURSE AND SHE WILL DIALYZE PT LATER TODAY.
[2019-01-07] MEDS: FUROSEMIDE INJ 10 MG/ML 4 ML VIAL IV SCH ×2 (08:58→20:56)
[2019-01-07] MEDS: LOSARTAN POTASSIUM 100 MG TAB PO SCH (08:58)
[2019-01-07] MEDS: CALCIUM ACETATE 667 MG GELCAP PO SCH ×4 (08:58→17:02)
[2019-01-07] MEDS: NIFEDIPINE CR 30 MG TAB PO SCH ×2 (08:58→17:03)
[2019-01-07] MEDS ORDERED: NIFEDIPINE CR 30 MG TAB PO SCH (09:00)
[2019-01-07] MEDS ORDERED: SODIUM CHLORIDE 0.9% 1000ML 1,000 ML ONE (10:16)
--- NOTE | 2019-01-07 10:31 | NUR ---
DIALYSIS NURSE IN ROOM STARTING HEMODIALYSIS AT THIS TIME.
--- NOTE | 2019-01-07 13:59 | NUR ---
Nutrition Screen Note RD Recommendation for Physician: Plan of Care: RD following, monitoring for adequacy and tolerance Nutrition reason for involvement: Nutrition Risk Trigger - MST Primary Diagnose(s): ESRD Ht:65 in Wt:155.01lbs BMI:25.8 kg/m2 IBW:[address] Assessment:(01/07/19) Initial encounter with Pt. Pt was on HD and CPAP. Family at bedside. Pt denies any difficulty chewing or swallowing. No N,V, D. 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 Current Diet: Renal diet Malnutrition Evaluation (01/07) The patient does not meet criteria for a specified degree of malnutrition at this time. Will re-evaluate at follow-up as appropriate. Diet Education Needs Assessment: Diet education not indicated. Diet Adequacy: Meeting calorie needs, Meeting protein needs, Meeting fluid needs Tolerance: Tolerating PO Nutrition Care Level: bette Lala RD, LD, CNSC
--- NOTE | 2019-01-07 14:32 | NUR ---
DIALYSIS COMPLETE 2.5 L REMOVED PER DIALYSIS NURSE.
--- NOTE | 2019-01-07 15:14 | NUR ---
ROS: unreliable v/s; rev'd PE: BIPAP in place tired appearing anicteric ns1s2 REDUCED BS THROUGHOUT soft nt nd no e/t; left arm with bruit audible skin dry n. affect a&ox3; colon labs/med; revd A/P: Acute resp failure- bipap; lasix; HD pending ESRD- HD pending Left pleural effusion- diuretics/HD PUlmonary edema- same AECHF- same; echo HTN- restart home meds SCD; pepcid dispo: 01/07 cont care; f/u H/H repeat later Shlomo Teague MD, PhD.
[2019-01-07] MEDS ORDERED: ONDANSETRON HCL 4 MG ORAL DISINTEGRATING TAB PO PRN (15:15)
--- NOTE | 2019-01-07 15:40 | Progress Note ---
DATE: Pulmonary Critical Care Progress Note SUBJECTIVE: The patient received dialysis and is receiving dialysis again today. He seems improved with this. He is requiring less oxygen. PHYSICAL EXAMINATION: VITAL SIGNS: The blood pressure is 143/85, respiratory rate is 26, pulse is 78, saturation is 100% and oxygen saturation at 2 L. He still has a BiPAP in place. CARDIAC: Reveals regular rate and rhythm with normal S1 and S2. LUNGS: Auscultation of lungs reveals crackles of the lung walden. There is no wheezing. ABDOMEN: Soft, nontender. There is no rebound or guarding. EXTREMITIES: Show no leg edema or calf tenderness. There is no cyanosis or clubbing. SKIN: Shows no rashes. NEUROLOGICAL: Shows no focal abnormalities. IMPRESSION: 1. Acute respiratory failure secondary to volume overload. 2. Accelerated hypertension. 3. End-stage renal disease. 4. Anemia, unspecified. PLAN: 1. Complete dialysis today. 2. Repeat chest x-ray. 3. Continue current antihypertensive regimen. Shon Healy MD [facility]/MODL /[id number]
--- NOTE | 2019-01-07 16:22 | Diagnostic Imaging Report ---
EXAMINATION: CHEST SINGLE (PORTABLE) INDICATION: ^Pulmonary Edema ^[id number] ^[id number] COMPARISON: Chest radiograph 01/06/2019 FINDINGS: AP view TUBES and LINES: Subclavian stent overlying the upper chest and midline, unchanged LUNGS: Lungs are well inflated. Atelectasis of the left lower lobe is unchanged. Improved bilateral pulmonary edema. PLEURA: Large left pleural effusion is unchanged. HEART AND MEDIASTINUM: Cardiomegaly is obscured by the pleural effusion. BONES AND SOFT TISSUES: No acute osseous lesion. Soft tissues are unremarkable. UPPER ABDOMEN: No free air under the diaphragm. IMPRESSION: Improvement in bilateral pulmonary edema. Persistent large left pleural effusion. Signed by: Dr. Evelyn Wright M.D. on 01/07/2019 4:19 PM
[2019-01-07] MEDS: DOCUSATE SODIUM 100 MG CAP PO SCH (17:02)
[2019-01-07] MEDS: SENNOSIDES 8.6 MG TAB PO SCH (17:03)
[2019-01-07 18:25] LABS: HEMATOCRIT 23.2 % (38.2-49.6); HEMOGLOBIN 7.6 g/dL (14.0-18.0)
--- NOTE | 2019-01-07 20:10 | NUR ---
called and spoke with dr Teague, patient complained of headache. also made him aware patient Hemoglobin is 7.6; the MD ordered tylenol for headache and HH lab in am. orders carried out.
[2019-01-07] MEDS: ACETAMINOPHEN 325 MG TAB PO PRN (20:27)
[2019-01-07] MEDS: DOXAZOSIN MESYLATE 2 MG TAB PO SCH (20:56)
--- NOTE | 2019-01-07 23:51 | NUR ---
called and spoke with dr Teague , patient complained cant sleep. the MD ordered Ambien 5 mg po q HS.
[2019-01-08] VITALS (7 sets, daily range): BP systolic 135–162; BP diastolic 56–89
[2019-01-08] MEDS: ZOLPIDEM TARTRATE 5 MG TAB PO PRN (00:06)
[2019-01-08] MEDS: HYDRALAZINE HCL 25 MG TAB PO SCH ×5 (00:07→23:16)
[2019-01-08] MEDS: NITROGLYCERIN 2% OINT 1 GM PKT TOP SCH ×4 (04:12→22:00)
[2019-01-08] MEDS: ACETAMINOPHEN 325 MG TAB PO PRN (06:32)
[2019-01-08 07:24] LABS: HEMATOCRIT 23.5 % (38.2-49.6); HEMOGLOBIN 7.7 g/dL (14.0-18.0)
[2019-01-08 07:39] LABS: ANION GAP 17.2 mmol/L (8-16); CALCIUM 9.2 mg/dL (8.4-10.2); CREATININE, SERUM 8.21 mg/dL (0.72-1.25); POTASSIUM 4.2 mmol/L (3.5-5.1)
[2019-01-08] MEDS: CALCIUM ACETATE 667 MG GELCAP PO SCH ×4 (08:00→17:19)
[2019-01-08] MEDS: FUROSEMIDE INJ 10 MG/ML 4 ML VIAL IV SCH ×2 (09:43→20:51)
[2019-01-08] MEDS: SENNOSIDES 8.6 MG TAB PO SCH ×2 (09:43→17:19)
[2019-01-08] MEDS: DOCUSATE SODIUM 100 MG CAP PO SCH ×2 (09:43→17:19)
[2019-01-08] MEDS: LOSARTAN POTASSIUM 100 MG TAB PO SCH (09:43)
[2019-01-08] MEDS: NIFEDIPINE CR 30 MG TAB PO SCH ×2 (09:43→17:19)
--- NOTE | 2019-01-08 10:30 | NUR ---
Patient showered; linens and gown changed; all trash removed from room; room cleaned, EVS mopped floor.
--- NOTE | 2019-01-08 12:23 | Progress Note ---
DATE: Pulmonary Critical Care Progress Note SUBJECTIVE: The patient feels much better. He is having no dyspnea or cough. He is eager to go home. PHYSICAL EXAMINATION: VITAL SIGNS: The patient is afebrile. The blood pressure is 156/89. Saturation is 97% on 2 L. HEENT: Shows no facial swelling or erythema. The nasal mucosa is normal. The oropharynx is normal. LYMPHATIC: Shows no submandibular, cervical, or supraclavicular adenopathy. CARDIAC: Reveals regular rate and rhythm with normal S1 and S2. There are no murmurs or rubs. LUNGS: Auscultation of lungs reveals rhonchorous breath sounds bilaterally. There is no wheezing. ABDOMEN: Soft and nontender. IMPRESSION: 1. Acute respiratory failure secondary to volume overload. 2. Accelerated hypertension. 3. End-stage renal disease. 4. Anemia. PLAN: 1. The patient is okay for discharge home. 2. Continue dialysis as an outpatient. 3. Continue antihypertensive regimen. Shon Healy MD [facility]/MODL /[id number]
--- NOTE | 2019-01-08 17:46 | NUR ---
IM- progress note O/N; no events ROS: no f/c/s/N/V/D/HEREDIA/vision change/cp/dizziness/leg pain/skin rash v/s; rev'd PE: BIPAP in place tired appearing anicteric ns1s2 REDUCED BS THROUGHOUT soft nt nd no e/t; left arm with bruit audible skin dry n. affect a&ox3; colon labs/med; revd A/P: Acute resp failure- bipap; lasix; HD pending ESRD- HD pending Left pleural effusion- diuretics/HD PUlmonary edema- same AECHF- same; echo HTN- restart home meds SCD; pepcid dispo: 01/07 cont care; f/u H/H repeat later . Persistent large effusion- IR for drainage in am. Shlomo Teague MD, PhD.
--- NOTE | 2019-01-08 19:00 | NUR ---
Report and rounds completed. Patient in bathroom. stated he has has several medications today stool softner and laxatives and has not been able to have bm. Notified family that will check for any PRN's and if nothing available then will call MD Dr Teague. Will continue to monitor.
--- NOTE | 2019-01-08 19:10 | NUR ---
Spoke with Dr Teague via phone. Patient in bathroom and unable to have BM. Has had colace 100mg po x2 and senokot 8.6 mg po x2 today and unable to have BM. Order: dulcolax sup x1, if not effective then warm soap suds enema x1.
--- NOTE | 2019-01-08 20:00 | NUR ---
Patient refused dulcolax sup at this time. Will call if change mind.
[2019-01-08] MEDS: DOXAZOSIN MESYLATE 2 MG TAB PO SCH (20:53)
[2019-01-08] MEDS: BISACODYL 10 MG SUPP PR ONE ×2 (21:21→21:59)
--- NOTE | 2019-01-08 21:45 | NUR ---
Education provided on importance of CHG shower before procedure. Patient refused shower tonight and would like to take in AM. Plan is to shower at 0500.
--- NOTE | 2019-01-08 22:01 | NUR ---
Patient request dulcolax sup. Patient requested to insert self in bathroom with privacy. Suppository opened and lube applied, education provided on how to use and administer. Patient Verbalized understanding.
--- NOTE | 2019-01-08 23:00 | NUR ---
Patient reports dulcolax sup effective, " had a good size bm". Call light within reach. at bedside.
[2019-01-09] VITALS (7 sets, daily range): BP systolic 99–160; BP diastolic 64–94
--- NOTE | 2019-01-09 | NUR ---
Education reinforced, nothing to eat or drink after midnight for procedure in am. Verbalized understanding. Water removed from bedside. Educated at bedside and verbalized understanding.
[2019-01-09] MEDS: ZOLPIDEM TARTRATE 5 MG TAB PO PRN (00:45)
[2019-01-09] MEDS: NITROGLYCERIN 2% OINT 1 GM PKT TOP SCH ×4 (03:38→21:30)
--- NOTE | 2019-01-09 05:00 | NUR ---
Patient up to shower for CHG bath. Education provided on how and where to use CHG soap. in restroom assisting with bathing. Linen changed and bed zero. Will obtain daily weight when patient out of shower.
--- NOTE | 2019-01-09 05:30 | NUR ---
Daily weight obtained 64.9kg.
[2019-01-09] MEDS: HYDRALAZINE HCL 25 MG TAB PO SCH ×4 (06:00→23:45)
[2019-01-09] MEDS: CALCIUM ACETATE 667 MG GELCAP PO SCH ×3 (08:00→16:31)
[2019-01-09] MEDS: SENNOSIDES 8.6 MG TAB PO SCH ×2 (09:00→16:12)
[2019-01-09] MEDS: LOSARTAN POTASSIUM 100 MG TAB PO SCH ×2 (09:00→13:03)
[2019-01-09] MEDS: NIFEDIPINE CR 30 MG TAB PO SCH ×2 (09:00→16:27)
[2019-01-09] MEDS: DOCUSATE SODIUM 100 MG CAP PO SCH ×2 (09:00→16:12)
[2019-01-09] MEDS ORDERED: SODIUM CHLORIDE 0.9% 1000ML 1,000 ML ONE (09:15)
[2019-01-09] MEDS: FUROSEMIDE INJ 10 MG/ML 4 ML VIAL IV SCH ×2 (09:23→21:00)
--- NOTE | 2019-01-09 09:59 | NUR ---
IM- progress note O/N; no events ROS: no f/c/s/N/V/D/HEREDIA/vision change/cp/dizziness/leg pain/skin rash v/s; rev'd PE: BIPAP in place tired appearing anicteric ns1s2 REDUCED BS THROUGHOUT soft nt nd no e/t; left arm with bruit audible skin dry n. affect a&ox3; colon labs/med; revd A/P: Acute resp failure- bipap; lasix; HD pending ESRD- HD pending Left pleural effusion- diuretics/HD PUlmonary edema- same AECHF- same; echo HTN- restart home meds SCD; pepcid dispo: 01/07 cont care; f/u H/H repeat later . Persistent large effusion- IR for drainage in am. 01/09 thoracentesis pending; check H/H at 2pm; Now PTX post thoracentesis and low grade fever- repeat XR in am; monitor over night; Shlomo Teague MD, PhD.
[2019-01-09] MEDS ORDERED: EPOETIN ALFA 10000 UNIT/ML VIAL SC ONE (12:30)
[2019-01-09 13:48] LABS: HEMATOCRIT 26.7 % (38.2-49.6); HEMOGLOBIN 8.8 g/dL (14.0-18.0)
--- NOTE | 2019-01-09 15:05 | Diagnostic Imaging Report ---
EXAM: Ultrasound-guided left thoracentesis DATE: 01/09/2019 2:05 PM INDICATION: Left pleural effusion COMPARISON: None Physician performing procedure: Dr. Hernandez PROCEDURES PERFORMED: Ultrasound guided thoracentesis Ultrasound images archived in PACS. Anesthesia: Local, 1% lidocaine Devices: 5-Guinean centesis needle PROCEDURE REPORT: After informed consent was obtained, ultrasound was utilized to identify a safe approach into the moderate sized left pleural effusion. The overlying skin was prepped and draped in usual full barrier sterile fashion. Lidocaine1% was used for local anesthesia. Under ultrasound guidance, a centesis needle was advanced into the left pleural effusion from a posterior approach. A total of 1,050 cc were aspirated without complication. The catheter was removed and a dressing applied to the skin. Complications: None Blood loss: Minimal, less than 1cc Samples: 1,050 cc of cloudy fluid was sent to the laboratory Patient disposition: Patient tolerated the procedure well. A post procedure chest x-ray was ordered. IMPRESSION: Uncomplicated ultrasound guided thoracentesis with removal of 1,050 cc. Signed by: Dr. Brandyn Hernandez DO on 01/09/2019 3:01 PM
--- NOTE | 2019-01-09 15:09 | Diagnostic Imaging Report ---
ADDENDUM #1 Addendum: The patient's nurse was notified of this finding at 3:10 PM, 01/09/2019. Signed by: Dr. Brandyn Hernandez DO on 01/09/2019 3:12 PM ORIGINAL REPORT EXAM: CHEST SINGLE (PORTABLE), AP Portable DATE: 01/09/2019 Time stamp on exam: 2:51 PM INDICATION: Status post thoracentesis COMPARISON: 01/07/2019. FINDINGS: LINES/TUBES: None LUNGS: No consolidations or edema. PLEURA: Left pleural effusion is near completely gone. There is a small left costophrenic angle pneumothorax. Chest x-ray in 4 hours is recommended. HEART AND MEDIASTINUM: Normal size and contour. BONES AND SOFT TISSUES: No acute findings. IMPRESSION: Small basilar pneumothorax; status post left thoracentesis. Signed by: Dr. Brandyn Hernandez DO on 01/09/2019 3:05 PM
[2019-01-09] MEDS: EPOETIN ALFA 10000 UNIT/ML VIAL SC SCH (16:12)
--- NOTE | 2019-01-09 17:23 | NUR ---
DC PLANNING: DISCUSSED PT IN ROUNDS. PT RECOMMENDED HOME W HOME HEALTH. PT HAS [facility]. ST RECOMMEND OUTPT [facility]. DISCUSSED PT NOT ABLE TO HAVE HH AND OUTPT SERVICES TOGETHER. CM CALL AND LEFT VM FOR DIR [facility] OF REHAB SERVICES TO SEE IF PT ELIGIBLE FOR OUTPT PHYSICAL THERAPY. WILL F/U TOMORROW. Addendum: 01/09/19 at 1734 by Yulia Montana CM ABOVE NOTE ENTERED IN ERROR
[2019-01-09] MEDS: ACETAMINOPHEN 325 MG TAB PO PRN (18:29)
--- NOTE | 2019-01-09 18:30 | NUR ---
INFORMED DR NICHOLAS OF CHEST X RAY RESULTS S/P THORACENTESIS AND REPEAT X RAY ORDERED IN 4 HOURS, NURSE TO CALL WITH RESULTS OF REPEAT X RAY
--- NOTE | 2019-01-09 19:00 | NUR ---
Report and rounds completed. Patient sitting in chair with family in room. Encourage patient to get back in bed to be hooked back up to monitors, patient refused at this time would like to sit in chair. Education provided on importance of monitoring and could move chair closer to monitor, patient states " I would like to sit here a while long and then I will move to bed." Call light within reach. Will continue to monitor.
--- NOTE | 2019-01-09 19:30 | Progress Note ---
DATE: Pulmonary Critical Care Progress Note SUBJECTIVE: The patient underwent ultrasound-guided thoracentesis. A liter of fluid was removed. The patient tolerated the procedure well, but had a small basilar pneumothorax. Chest x-ray after the procedure. OBJECTIVE: VITAL SIGNS: The patient is afebrile. Blood pressure is 160/92. He is on room air and saturating 99%. HEENT: Shows no facial swelling or erythema. CARDIAC: Reveals a regular rate and rhythm with normal S1, S2. There are no murmurs or rubs. LUNGS: Auscultation of lungs reveals clear breath sounds bilaterally. There is no wheezing. ABDOMEN: Soft, nontender. There is no rebound or guarding. IMPRESSION: 1. Acute respiratory failure secondary to volume overload. 2. Accelerated hypertension. 3. End-stage renal disease. 4. Anemia, unspecified. 5. Pleural effusion. PLAN: 1. The patient can be discharged home once okay with the interventional radiologist. 2. Continue current antihypertensive regimen. 3. Continue dialysis as an outpatient. Shon Healy MD [facility]/MODL /[id number]
--- NOTE | 2019-01-09 19:53 | Diagnostic Imaging Report ---
Examination: Single AP view of the chest. COMPARISON: Chest radiograph 01/09/2019 INDICATION: Status post thoracentesis DISCUSSION: Lines/tubes: Vascular stent projects over the expected position of the nondominant vein. Lungs: Scattered atelectasis in the left mid and lower lung zones. Pulmonary vascular congestion. Pleura: Unchanged small left basilar pneumothorax. Heart and mediastinum: Moderately enlarged cardiac silhouette. Left heart border obscured by adjacent airspace opacities. Bones and soft tissues: No acute bony abnormalities. Degenerative changes in the thoracic spine. IMPRESSION: Unchanged small left basilar pneumothorax. Stable enlarged cardiac silhouette and pulmonary vascular congestion. Signed by: Chetan Bonds MD on 01/09/2019 7:49 PM
--- NOTE | 2019-01-09 20:10 | NUR ---
Call results to Dr Teageu for second cxr: Unchanged left basilar pneumothorax. Call Radiologist for percentage of pneumothorax and call back.
--- NOTE | 2019-01-09 20:15 | NUR ---
Call Chetan Tsang radiologist to request cxr to be read with percentage of pneumothorax. Dr Bonds stated : " the size is reported usually as small, moderate or large but air gap is 2.6 cm. Can give better size with CT."
--- NOTE | 2019-01-09 20:18 | NUR ---
Spoke with Dr Teague and reported that radiologist stated that pneumothorax is reported at small, moderate or large but air gap is 2.6cm. Order to call Dr Healy for clearance.
--- NOTE | 2019-01-09 20:19 | NUR ---
Spoke with Dr Healy: results read from first and second cxr: Left basilar pneumothorax and unchanged basilar pneumothorax, with air gap 2.6 cm. Patient okay to discharge from his standpoint.
--- NOTE | 2019-01-09 20:20 | NUR ---
Spoke with Dr Teague: Dr Healy cleared patient for discharge but patient temp currently 100.4 and had tylenol at 1829. Monitor over night, CXR in am, cbc, bmp and consult CM for hospital bed for home.
[2019-01-09] MEDS: DOXAZOSIN MESYLATE 2 MG TAB PO SCH (21:30)
--- NOTE | 2019-01-09 22:00 | NUR ---
Noted patient sweating, offer bed bath, patient refused. Wiped off with warm wipes, gown changed and linen changed. Will continue to monitor. at bedside and all light within reach.
[2019-01-10 00:09] VITALS: BP 166/91
[2019-01-10] MEDS: ZOLPIDEM TARTRATE 5 MG TAB PO PRN (01:45)
[2019-01-10] MEDS ORDERED: BENZONATATE 100 MG CAP PO PRN (01:45)
--- NOTE | 2019-01-10 01:45 | NUR ---
Spoke with Dr Teague via phone. Patient c/o cough and requesting medication to help. New order: Tessalon perles 100 mg po Q 8 hrs PRN cough
[2019-01-10 04:00] VITALS: BP 169/94
[2019-01-10] MEDS: NITROGLYCERIN 2% OINT 1 GM PKT TOP SCH ×3 (04:00→08:56)
[2019-01-10 05:22] LABS: BASOPHILS % 0.4 % (0.0-1.0); EOSINOPHILS # (AUTO) 0.5 (0.0-0.4); EOSINOPHILS % 6.8 % (0.0-6.0); HEMATOCRIT 25.2 % (38.2-49.6); HEMOGLOBIN 8.2 g/dL (14.0-18.0); LYMPHOCYTES # (AUTO) 0.9 (1.0-3.2); LYMPHOCYTES % 11.3 % (18.0-39.1); MEAN CORPUSCULAR HEMOGLOBIN 29.7 pg (28-32); MEAN CORPUSCULAR HGB CONC 32.5 g/dL (31-35); MEAN CORPUSCULAR VOLUME 91.3 fL (81-99); MONOCYTES # (AUTO) 0.9 (0.2-0.8); MONOCYTES % 10.9 % (4.4-11.3); NEUTROPHILS # (AUTO) 5.5 (2.1-6.9); NEUTROPHILS % 69.5 % (38.7-80.0); PLATELET COUNT 214 x10e3/uL (140-360); RED BLOOD COUNT 2.76 x10e6/uL (4.3-5.7); RED CELL DISTRIBUTION WIDTH 15.7 % (11.7-14.4)
[2019-01-10 05:44] LABS: ANION GAP 14.5 mmol/L (8-16); CALCIUM 9.2 mg/dL (8.4-10.2); CREATININE, SERUM 7.54 mg/dL (0.72-1.25); POTASSIUM 4.5 mmol/L (3.5-5.1)
--- NOTE | 2019-01-10 05:45 | NUR ---
Patient up and ambulating around unit with walker, at side. Will continue to monitor.
[2019-01-10] MEDS: HYDRALAZINE HCL 25 MG TAB PO SCH ×2 (06:05→11:54)
--- NOTE | 2019-01-10 06:27 | Diagnostic Imaging Report ---
EXAMINATION: CHEST SINGLE (PORTABLE) INDICATION: ^follow up after thoracentsis ^[id number] ^[id number] COMPARISON: 01/09/2019 FINDINGS: AP view Lines/tubes: Vascular stent projects over the expected position of the innominate vein. Lungs: Persistent bilateral airspace opacities, worse in the left base. Pulmonary vascular congestion. Pleura: Unchanged small left lower lung field loculated appearing pneumothorax. Heart and mediastinum: Moderately enlarged cardiomediastinal silhouette. Left heart border obscured by adjacent airspace opacities. Bones and soft tissues: No acute bony abnormalities. Degenerative changes in the thoracic spine. IMPRESSION: Unchanged small left lower lung field loculated appearing pneumothorax. Enlarged cardiomediastinal silhouette and pulmonary vascular congestion. Bilateral airspace opacities, slightly increased at the left lung base, representing edema and/or pneumonia. Small left pleural effusion cannot be excluded. Signed by: Dr. Brandon Cabrera MD on 01/10/2019 6:23 AM
[2019-01-10 07:31] VITALS: BP 152/89
--- NOTE | 2019-01-10 08:08 | NUR ---
Discharges Summary Principal dx; Acute resp failure- bipap; lasix; HD pending Left pleural effusion- diuretics/HD PUlmonary edema- same AECHF- same; echo Secondary Dx: ESRD- HD pending HTN- restart home meds 01/07 cont care; f/u H/H repeat later 01.08 Persistent large effusion- IR for drainage in am. 01/09 thoracentesis pending; check H/H at 2pm; Now PTX post thoracentesis and low grade fever- repeat XR in am; monitor over night; 01/10 pt did have small Pneumothorax after drainage; no respiratory difficulty. No chest tube needed. d/c home f/u PCP 1 week and 1 week stable d/c >35mins Shlomo Teague MD, PhD.
[2019-01-10 08:32] VITALS: BP 152/89
[2019-01-10] MEDS: CALCIUM ACETATE 667 MG GELCAP PO SCH ×2 (08:47→11:54)
[2019-01-10] MEDS: DOCUSATE SODIUM 100 MG CAP PO SCH (08:47)
[2019-01-10] MEDS: SENNOSIDES 8.6 MG TAB PO SCH (08:47)
[2019-01-10] MEDS: FUROSEMIDE INJ 10 MG/ML 4 ML VIAL IV SCH ×2 (08:47→09:00)
[2019-01-10] MEDS: NIFEDIPINE CR 30 MG TAB PO SCH (08:47)
--- NOTE | 2019-01-10 10:57 | NUR ---
PT LOST IV ACCESS, OK PER MD TO GIVE ONE TIME PO DOSE. PT TO DC ONCE WALKER DELIVERED AND SPOUSE RETURNS.
--- NOTE | 2019-01-10 10:59 | NUR ---
PT DOES NOT QUALIFY FOR HOSPITAL BED, PROVIDED WALKER, GOT GREEN SHEET SIGNED BY PT WILL GET SIGNED BY MD AND RETURN FOR PROCESSING.
[2019-01-10 11:17] VITALS: BP 141/84
[2019-01-10] MEDS ORDERED: FUROSEMIDE 40 MG TAB PO NR (11:30)
--- NOTE | 2019-01-10 11:45 | NUR ---
EDUCATED ABOUT IMM, SIGNED, FILED IN CHART, WITH COPY LEFT WITH FAMILY AT BEDSIDE.
[2019-01-10] MEDS ORDERED: NIFEDIPINE ER30 M1 (11:58)
[2019-01-10] MEDS ORDERED: HYDRALAZINE HCL25 MG PO (11:59)
--- NOTE | 2019-01-10 12:05 | NUR ---
REVIEWED DC INSTRUCTIONS WITH PT, FAMILY AT BEDSIDE. VERBALIZED UNDERSTANDING. DR NICHOLAS TO CALL IN NEW RX TO [facility]. PT DC STABLE.
== END 2019-01-10 12:15 | disposition home or self-care (01) | DRG 291 ==
LOC: ER 02:34 → ERHOLD 04:11 → IMCU 22:18
PROVIDERS: ADMIT Internal Medicine; ATTEND Internal Medicine
PROC: 5A1D70Z Performance of Urinary Filtration, Intermittent, Less than 6 Hours Per Day (ICD-10-PCS; principal; 2019-01-06)
PROC: 5A1D70Z Performance of Urinary Filtration, Intermittent, Less than 6 Hours Per Day (ICD-10-PCS; 2019-01-07)
PROC: 5A1D70Z Performance of Urinary Filtration, Intermittent, Less than 6 Hours Per Day (ICD-10-PCS; 2019-01-09)
PROC: 0W9B3ZZ Drainage of Left Pleural Cavity, Percutaneous Approach (ICD-10-PCS; 2019-01-09)
DX: I13.2 Hypertensive heart and chronic kidney disease with heart failure and with stage 5 chronic kidney disease, or end stage renal disease (principal); J96.00 Acute respiratory failure, unspecified whether with hypoxia or hypercapnia; N18.6 End stage renal disease; I50.31 Acute diastolic (congestive) heart failure; J90 Pleural effusion, not elsewhere classified; Z99.2 Dependence on renal dialysis
CPT/HCPCS: 32555; 36415; 71045; 74470; 80048; 80053; 82040; 82550; 82553; 82805; 82948; 83615; 83880; 84484; 85014; 85018; 85025; 85610; 85730; 86704; 86705; 86706; 86803; 87205; 87340; 88112; 88305; 90962; 93005; 94640; 94660; 99284; J0360; J1940; J7030; Q4081

== ENCOUNTER 2019-03-12 18:46 | Inpatient (IN) | payer MEDICARE ==
[~2019-03-12] VITALS: Ht 165.1 cm; Wt 64.9 kg
[~2019-03-12 18:46] MED LIST changes: +HYDRALAZINE HCL25 MG PO
[2019-03-12] MEDS ORDERED: METOPROLOL TARTRATE INJ 1 MG/ML VIAL IV NR (19:30)
[2019-03-12] MEDS ORDERED: METOPROLOL TARTRATE INJ 1 MG/ML VIAL IV ONE (19:35)
[2019-03-12 19:37] LABS: BASOPHILS # (AUTO) 0.1 (0.0-0.1); BASOPHILS % 0.6 % (0.0-1.0); EOSINOPHILS # (AUTO) 0.8 (0.0-0.4); EOSINOPHILS % 10.7 % (0.0-6.0); HEMOGLOBIN 12.3 g/dL (14.0-18.0); LYMPHOCYTES # (AUTO) 1.5 (1.0-3.2); LYMPHOCYTES % 18.8 % (18.0-39.1); MEAN CORPUSCULAR HEMOGLOBIN 28.3 pg (28-32); MEAN CORPUSCULAR HGB CONC 32.4 g/dL (31-35); MEAN CORPUSCULAR VOLUME 87.6 fL (81-99); MONOCYTES # (AUTO) 0.6 (0.2-0.8); MONOCYTES % 7.6 % (4.4-11.3); NEUTROPHILS # (AUTO) 4.8 (2.1-6.9); NEUTROPHILS % 61.8 % (38.7-80.0); PLATELET COUNT 196 x10e3/uL (140-360); RED BLOOD COUNT 4.34 x10e6/uL (4.3-5.7); RED CELL DISTRIBUTION WIDTH 16.6 % (11.7-14.4)
[2019-03-12] MEDS ORDERED: ASPIRIN 81 MG CHEW TAB PO ONE ×2 (19:45→20:15)
[2019-03-12 19:51] LABS: ALBUMIN/GLOBULIN RATIO 0.7 (0.8-2.0); ANION GAP 19.2 mmol/L (8-16); CALCIUM 10.1 mg/dL (8.4-10.2); CREATININE, SERUM 9.22 mg/dL (0.72-1.25); POTASSIUM 5.2 mmol/L (3.5-5.1)
[2019-03-12 19:53] LABS: CREATINE KINASE MB 1.5 ng/mL (0-5.0)
--- NOTE | 2019-03-12 19:56 | Diagnostic Imaging Report ---
Examination: Single AP view of the chest. COMPARISON: None. INDICATION: Shortness of breath DISCUSSION: Lines/tubes: None. Lungs: Multifocal airspace consolidations most prominent in the lower lungs. Pulmonary venous congestion. Pleura: Left pleural effusion, possible right effusion.. Heart and mediastinum: Heart enlarged. Bones and soft tissues: No acute bony abnormalities. IMPRESSION: Probable multifocal pneumonia with left effusion. Signed by: Dr. Luis Felipe Roberts M.D. on 03/12/2019 7:52 PM
[2019-03-12] MEDS ORDERED: VANCOMYCIN HCL 1GM/NS 250 ML BAG IV SCH (20:15)
[2019-03-12] MEDS: CEFEPIME HCL 2 GM/SOD CHL 0.9% 100 ML BAG IV SCH (20:31)
[2019-03-12 21:10] LABS: ABG HCO3 27 mmol/L (23-28); ABG PCO2 37 mmHg (41-51); ABG PH 7.47 (7.31-7.41); ABG PO2 64 mmHg (80-105)
[2019-03-12] MEDS: VANCOMYCIN HCL 1GM/NS 250 ML BAG IV SCH (21:17)
--- NOTE | 2019-03-12 22:02 | NUR ---
pt placed on tele box 15
[2019-03-12 22:21] VITALS: BP 181/88
[2019-03-12] MEDS: NIFEDIPINE CR 30 MG TAB PO SCH (23:27)
[2019-03-12] MEDS: DOXAZOSIN MESYLATE 2 MG TAB PO SCH (23:27)
--- NOTE | 2019-03-12 23:30 | NUR ---
[facility] called and placed on dialysis for wednesday03-13-19 routine.
[2019-03-13] VITALS (7 sets, daily range): BP systolic 161–196; BP diastolic 86–101
--- NOTE | 2019-03-13 01:34 | NUR ---
Per Advance Directive, code status changed to DNR. Advance Directive, POA placed in chart.
[2019-03-13] MEDS ORDERED: SOD POLYSTYRENE SULFONATE SUSP 15 GM/60 ML BTL PO ONE ×2 (03:00)
[2019-03-13] MEDS ORDERED: SODIUM CHLORIDE 0.9% 250ML 250 ML ONE (05:12)
[2019-03-13] MEDS: CEFEPIME HCL 2 GM/SOD CHL 0.9% 100 ML BAG IV SCH (05:14)
[2019-03-13 06:12] LABS: CREATINE KINASE MB 1.6 ng/mL (0-5.0)
[2019-03-13] MEDS: CALCIUM ACETATE 667 MG GELCAP PO SCH ×3 (08:04→17:18)
[2019-03-13] MEDS: LOSARTAN POTASSIUM 100 MG TAB PO SCH (08:04)
[2019-03-13] MEDS: NIFEDIPINE CR 30 MG TAB PO SCH ×2 (08:05→20:41)
--- NOTE | 2019-03-13 08:17 | NUR ---
H&P cc:sob HPI: 68yoM, a clinic pt, now with fluid overload; no real cough. no cp. taking lasix at home. PMH: HTN, acute resp failure, CHF, 3/6 systolic murmur, ESRD on HD, HTN, Bradycardia, iron-deficiency anemia, anemia, pleural effusion, PSx: HD access Allergies; see emr Fh/SH; ; no cigs. Meds; see MAR ROS: no cp/f/c/s/leg pain/back pain/skin rash/vision changes v/s; rev'd PE: tired appearing anicteric ns1s2 REDUCED BS THROUGHOUT soft nt nd no e/t; left arm with bruit audible skin dry n. affect a&ox3; colon labs/med; revd A/P: Multifocal PNA Left effusion ESRD- HD pending PUlmonary edema- same AECHF- same; echo HTN- restart home meds SCD; pepcid dispo: Shlomo Teague MD, PhD.
[2019-03-13] MEDS ORDERED: HYDRALAZINE HCL 25 MG TAB PO SCH ×2 (09:00)
[2019-03-13] MEDS ORDERED: NON-FORMULARY MEDICATION (Vit B Cmplx 3/Fa/Vit C/Biotin (Rena-Vite Rx Tablet) 1 TAB) PO SCH (09:00)
[2019-03-13] MEDS ORDERED: NIFEDIPINE CR 30 MG TAB PO ONE (10:00)
[2019-03-13] MEDS ORDERED: NIFEDIPINE CR 30 MG TAB PO SCH (10:45)
--- NOTE | 2019-03-13 12:00 | NUR ---
Called [facility] to remind patient to be dialyzed today. Answer service states "second HD nurse is on the way"
[2019-03-13] MEDS: CEFEPIME 2 GM/NS 0.9% 100 ML 100 ML IV SCH ×2 (14:20→23:00)
[2019-03-13] MEDS ORDERED: SODIUM CHLORIDE 0.9% 1000ML 1,000 ML ONE (14:45)
--- NOTE | 2019-03-13 15:38 | Consultation ---
DATE OF CONSULTATION: 03/13/2019 REASON FOR CONSULTATION: Congestive heart failure. HISTORY OF PRESENT ILLNESS: This is a 69-year-old male well known to practice with a history of end-stage renal disease, on dialysis since 2005, hypertension. The patient presents to [facility] ER with complaints of shortness of breath, for the past two days. The patient reports that he is going to dialysis on a regular basis and is not skipping his HD therapies. Of note, the patient has a history of intermittently skipping his HD therapy. Cardiology was consulted secondary to volume overload and possible CHF. The patient is seen in room, reports shortness of breath for the past two days, swelling and elevated blood pressure. Reports taking his medication. Reports going to dialysis. However, he is never compliant with volume management and intake. Denies any chest pain. PAST MEDICAL HISTORY: End-stage renal disease since 2015, Wednesday, Wednesday, Wednesday with Dr. Mcelroy. Also history of hypertension. PAST SURGICAL HISTORY: Left AV fistula. SOCIAL HISTORY: He is . 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 He denies any alcohol or tobacco use. FAMILY HISTORY: Reports his mother at age 82, unknown reasons. Father at age 56, apparently had stomach issues. HOME MEDICATIONS: Include hydralazine 100 mg t.i.d., losartan 100 mg daily, nifedipine 60 mg once a day, doxazosin 2 mg daily. ALLERGIES: NO KNOWN ALLERGIES. REVIEW OF SYSTEMS: GENERAL: Positive for weight gain. Positive for fatigue, weakness. Denies any fever, chills, or night sweats. SKIN: No rashes or sores. HEENT: Denies any nausea, vomiting, vision change, blurred vision, double vision, earache, epistaxis, hoarseness, sore throat, swollen neck. CARDIAC: Denies any chest pain. Positive for dyspnea on exertion. Positive for orthopnea. Positive for PND. Positive for lower extremity edema. RESPIRATORY: Positive for shortness of breath. Denies any cough, wheezing, hemoptysis. GI: Good appetite. Denies any nausea, vomiting, hematemesis, melena, or hematochezia. URINARY: Denies any urgency, polyuria, hematuria, or dysuria. VASCULAR: Positive for lower extremity swelling. MUSCULOSKELETAL: Positive for generalized joint pain. NEUROLOGIC: Positive for numbness and tingling in lower extremity. Denies any blackouts, fainting, seizures. HEMATOLOGY: Positive for anemia. Denies any bruising. ENDOCRINE: Denies any heat or cold intolerance. No polyuria, polydipsia, or polyphagia. PHYSICAL EXAMINATION: VITAL SIGNS: Height 65 inches, weight 134 pounds, BMI 22. Initial blood pressure 223/117, heart rate 90, temperature 96.5, respiratory rate 20. GENERAL: Appears stated age, reliable informant. No acute distress. SKIN: No rashes or bruises noted. HEENT: Normocephalic. Pupils are equal and reactive. Extraocular movements intact. Trachea midline. Oral mucosa pink. NECK: Soft carotid bruit heard on left side. No JVD. HEART: Regular rate and rhythm with a systolic murmur. Positive right upper sternal border. PMI about 4th and 5th intercostal space. LUNGS: Bilateral breath sounds with crackles at bases. ABDOMEN: Soft, nontender, nondistended. No organomegaly noted. MUSCULOSKELETAL: Good muscle strength throughout. VASCULAR: +2 bilateral radial pulses, +1 DP, PT pulses bilaterally, +2 lower extremity edema. Also left AV fistula with bruit and thrill. Also noted left arm swelling. NEUROLOGIC: Cranial nerves II through XII seem intact. LABORATORY DATA: White count 7.7, hemoglobin of 12, hematocrit 38, platelets 196. Chemistry; sodium 138, potassium 5.2, chloride 100, bicarb 24, BUN 38, and creatinine 9.22. Troponin 0.09, next 0.07. BNP 2042. IMAGING DATA: Chest x-ray showing multifocal consolidation. EKG showed normal sinus rhythm. ASSESSMENT: 1. Volume overload. 2. Hypertensive emergency. 3. End-stage renal disease. PLAN: 1. The patient presents with hypertensive urgency and volume overload. He is to have HD therapy today. Of note, the patient had an echo done recently in December 2018, which showed EF about 55%. 2. Continue home medications for antihypertensives. 3. Long discussion with patient about volume management. 4. We will continue to monitor patient and adjust cardiac therapy as clinical course dictates. Thank you very much for this consult. SEEN AND EXAMINED DISCUSSED WITH PATIENT MOST LIKELY SEVERE CAD WANTS MEDICAL RX CHECK LABS ADD ASA Dictated by Jeff Osman, SUNIL Laila Garcia MD DC/TREVOR /[id number]
[2019-03-13] MEDS: MULTIVITAMINS/MINERALS TAB PO SCH (17:18)
--- NOTE | 2019-03-13 18:35 | NUR ---
Resting in bed, side rails upx2, call light within reach, HD nurse at bedside. No s/s of acute distress noted. Report to be given to oncoming nurse of patient's status.
--- NOTE | 2019-03-13 18:50 | NUR ---
Received report from previous nurse. Family at bedside. Patient is getting dialysis done. Call light within reach. Patient told we need to get a sputum culture.
[2019-03-13 19:15] LABS: CREATINE KINASE MB 1.9 ng/mL (0-5.0)
--- NOTE | 2019-03-13 20:30 | NUR ---
Called and talked to Dr. Garcia about patient's weight after dialysis. Dr. Garcia said he will remove more fluid tomorrow
[2019-03-13] MEDS: VANCOMYCIN HCL 1GM/NS 250 ML BAG IV SCH ×2 (20:41→20:58)
[2019-03-13] MEDS: DOXAZOSIN MESYLATE 2 MG TAB PO SCH (20:41)
--- NOTE | 2019-03-13 20:55 | NUR ---
Patient and his family wanted me to call Dr. Teague about patient getting vancomycin and if he had to get it. Dr. Teague was called and said to give the patient vancomycin because he is on dialysis.
[2019-03-14] VITALS: BP 161/78
--- NOTE | 2019-03-14 00:26 | Consultation ---
DATE OF CONSULTATION: 03/13/2019 Renal Consultation REASON FOR CONSULTATION: End-stage renal disease and volume overload. HISTORY OF PRESENT ILLNESS: A 69-year-old male with end-stage renal disease, on hemodialysis Wednesday, Wednesday, and Wednesday, who presented to [facility] with shortness of breath. The patient states he has been compliant with dialysis and getting to his dry weight. He became short of breath on 03/12/2019, and presented to the emergency room. The patient at this time is undergoing hemodialysis. REVIEW OF SYSTEMS: As above. PAST MEDICAL HISTORY: 1. End-stage renal disease, on hemodialysis Wednesday, Wednesday, and Wednesday. 2. Hypertension. PAST SURGICAL HISTORY: Left AV fistula. SOCIAL HISTORY: No tobacco. No alcohol. No IV drugs. FAMILY HISTORY: No family history of kidney disease. ALLERGIES: NO KNOWN DRUG ALLERGIES. CURRENT MEDICATIONS: See list. PHYSICAL EXAMINATION: VITAL SIGNS: Blood pressure 164/101, pulse 77, respiratory rate 26, and temperature 98.2. GENERAL: No apparent distress. HEENT: Oropharynx clear. No scleral icterus. No peripheral edema. NECK: Supple. Elevated jugular venous pressure. CHEST: Clear to auscultation anteriorly with decreased breath sounds at bases. CARDIOVASCULAR: Regular rhythm. ABDOMEN: Soft. Positive bowel sounds. No tenderness. No rebound. EXTREMITIES: 1+ edema. IMAGING: Chest x-ray, probable multifocal pneumonia with left effusion. LABORATORY DATA: Sodium 138, potassium 5.2, chloride 100, CO2 of 24, BUN 38, creatinine 9.22, and albumin 4. White count 7, hemoglobin 12.3, and hematocrit 38. ASSESSMENT AND PLAN: 1. End-stage renal disease. The patient currently undergoing hemodialysis, continue Wednesday, Wednesday, and Wednesday. 2. Volume overload. We will do daily weights, schedule for ultrafiltration. In the morning, we will need to adjust the patient's dry weight as suspect. 3. Hyperkalemia, corrected with hemodialysis. 4. Anemia secondary to chronic kidney disease. Hold Epogen unless hemoglobin drops below 11. 5. Hypertension. Follow with ultrafiltration. MD ETHEL Maya/TREVOR /[id number]
[2019-03-14 04:00] VITALS: BP 147/69
[2019-03-14] MEDS: CEFEPIME 2 GM/NS 0.9% 100 ML 100 ML IV SCH (06:11)
--- NOTE | 2019-03-14 06:36 | NUR ---
D/C SUmmary Principal Dx: Multifocal PNA Left effusion AECHF diastolic Pulmonary edema SEcondary dx: ESRD- HD pending HTN- restart home meds SCD; pepcid dispo: 03/14 cont abx; cont HD; d/c planning; d/c home f/u pcp 1 week stable d/c>35mins Shlomo Teague MD, PhD.
--- NOTE | 2019-03-14 07:16 | NUR ---
Gave report to oncoming nurse. Call light within reach. Patient in bed. Family at bedside
[2019-03-14] MEDS ORDERED: HYDRALAZINE HCL25 MG PO (07:25)
[2019-03-14] MEDS ORDERED: NIFEDIPINE ER30 M1 PO (07:25)
[2019-03-14] MEDS ORDERED: METOPROLOL TART25 MG PO (07:25)
--- NOTE | 2019-03-14 07:36 | NUR ---
Called [facility] to notify of doctor's orders for patient to be dialyzed today
[2019-03-14] MEDS ORDERED: SODIUM CHLORIDE 0.9% 1000ML 2,000 ML ONE (07:43)
--- NOTE | 2019-03-14 07:50 | NUR ---
IMM letter delivered and explained to pt. He verbalized understanding. Signed copy placed in chart. Copy to pt.
[2019-03-14 08:00] VITALS: BP 146/85
[2019-03-14] MEDS: CALCIUM ACETATE 667 MG GELCAP PO SCH ×2 (08:00→11:49)
[2019-03-14] MEDS ORDERED: METOPROLOL TARTRATE 25 MG TAB PO SCH (09:00)
[2019-03-14] MEDS ORDERED: LEVAQUIN500 MG PO (09:25)
[2019-03-14] MEDS ORDERED: ASPIRIN 81 MG ENTERIC COATED PO SCH (10:30)
[2019-03-14] MEDS: LOSARTAN POTASSIUM 100 MG TAB PO SCH (11:21)
[2019-03-14] MEDS: MULTIVITAMINS/MINERALS TAB PO SCH (11:22)
[2019-03-14] MEDS: NIFEDIPINE CR 30 MG TAB PO SCH (11:22)
[2019-03-14 12:00] VITALS: BP 162/91
--- NOTE | 2019-03-14 13:13 | NUR ---
Notified SPO2 94% room air and 93% upon exertion. Per "okay to discharge"
[2019-03-14] MEDS ORDERED: ASPIRIN81 MG PO (13:14)
--- NOTE | 2019-03-14 13:33 | NUR ---
Right FA IV discontinued. No signs of infiltration noted. 2x2 gauze and tape placed. Taken via wheelchair by PCT to personal car. AAOX4 to time, person, place, situation. Respirations even and unlabored. Discharge instructions, rx, and all personal belongings taken with patient.
== END 2019-03-14 13:33 | disposition home or self-care (01) | DRG 291 ==
LOC: ER 18:46 → ERHOLD 20:09 → MED/SURG2 22:21
PROVIDERS: ADMIT Internal Medicine; ATTEND Internal Medicine
PROC: 5A1D70Z Performance of Urinary Filtration, Intermittent, Less than 6 Hours Per Day (ICD-10-PCS; principal; 2019-03-13)
DX: I13.2 Hypertensive heart and chronic kidney disease with heart failure and with stage 5 chronic kidney disease, or end stage renal disease (principal); I50.33 Acute on chronic diastolic (congestive) heart failure; N18.6 End stage renal disease; J18.9 Pneumonia, unspecified organism; I16.1 Hypertensive emergency; E87.5 Hyperkalemia; R00.1 Bradycardia, unspecified; D50.9 Iron deficiency anemia, unspecified; I25.10 Atherosclerotic heart disease of native coronary artery without angina pectoris; Z91.11 Patient's noncompliance with dietary regimen; Z99.2 Dependence on renal dialysis; Z79.82 Long term (current) use of aspirin
CPT/HCPCS: 36415; 36600; 71045; 80053; 82550; 82553; 82805; 83690; 83880; 84484; 85025; 86704; 86706; 86707; 87040; 87340; 87350; 90962; 93005; 99284; J3370; J7030; J7050

== ENCOUNTER 2019-12-24 13:11 | Inpatient (IN) | payer MEDICARE, OTHER ==
[~2019-12-24] VITALS: Ht 165.1 cm; Wt 64.9 kg
[~2019-12-24 13:11] MED LIST changes: +ASPIRIN81 MG PO; +LEVAQUIN500 MG PO; +METOPROLOL TART25 MG PO
[2019-12-24] MEDS ORDERED: HYDRALAZINE HCL 20 MG/ML VIAL IV STA (13:37)
[2019-12-24 13:45] LABS: BASOPHILS # (AUTO) 0.1 (0.0-0.1); BASOPHILS % 0.7 % (0.0-1.0); EOSINOPHILS # (AUTO) 1.4 (0.0-0.4); EOSINOPHILS % 20.4 % (0.0-6.0); HEMATOCRIT 33.4 % (38.2-49.6); HEMOGLOBIN 10.8 g/dL (14.0-18.0); LYMPHOCYTES # (AUTO) 0.9 (1.0-3.2); LYMPHOCYTES % 12.7 % (18.0-39.1); MEAN CORPUSCULAR HEMOGLOBIN 29.3 pg (28-32); MEAN CORPUSCULAR HGB CONC 32.3 g/dL (31-35); MEAN CORPUSCULAR VOLUME 90.8 fL (81-99); MONOCYTES # (AUTO) 0.5 (0.2-0.8); MONOCYTES % 6.4 % (4.4-11.3); NEUTROPHILS # (AUTO) 4.2 (2.1-6.9); NEUTROPHILS % 59.4 % (38.7-80.0); PLATELET COUNT 192 x10e3/uL (140-360); RED BLOOD COUNT 3.68 x10e6/uL (4.3-5.7); RED CELL DISTRIBUTION WIDTH 15.6 % (11.7-14.4)
[2019-12-24 13:57] LABS: ALBUMIN 3.7 g/dL (3.5-5.0); ALBUMIN/GLOBULIN RATIO 0.7 (0.8-2.0); ANION GAP 18.2 mmol/L (8-16); CREATININE, SERUM 8.99 mg/dL (0.72-1.25)
[2019-12-24 13:59] LABS: POTASSIUM 5.2 mmol/L (3.5-5.1)
[2019-12-24] MEDS ORDERED: SOD POLYSTYRENE SULFONATE SUSP 15 GM/60 ML BTL PO ONE (14:15)
[2019-12-24] MEDS ORDERED: SOD POLYSTYRENE SULFONATE SUSP 15 GM/60 ML BTL ONE (14:23)
--- NOTE | 2019-12-24 14:46 | Diagnostic Imaging Report ---
EXAMINATION: CHEST SINGLE (PORTABLE) INDICATION: SOB COMPARISON: Chest radiograph 03/12/2019. FINDINGS: TUBES and LINES: None. LUNGS/PLEURA: Lungs are well inflated. There are bilateral interstitial and alveolar opacities. Hazy opacities in the bilateral mid and lower lung zones, left greater than right. Moderate left and small right pleural effusions. HEART AND MEDIASTINUM: The cardiomediastinal silhouette is mildly enlarged. Vascular stent overlies the upper mediastinum. Atherosclerotic calcifications of the aortic arch. BONES AND SOFT TISSUES: No acute osseous lesion. Soft tissues are unremarkable. UPPER ABDOMEN: No free air under the diaphragm. IMPRESSION: Cardiomegaly with pulmonary edema, moderate left and small right pleural effusions and lower lung zone predominant opacities, which may represent atelectasis or pneumonia. Signed by: Dr. Bhargavi Benites MD on 12/24/2019 2:43 PM
[2019-12-24] MEDS ORDERED: SODIUM CHLORIDE 0.9% 1000ML 2,000 ML IV ONE (15:30)
[2019-12-24] MEDS ORDERED: SODIUM CHLORIDE 0.9% 1000ML 2,000 ML ONE (15:31)
--- NOTE | 2019-12-24 19:32 | Consultation ---
DATE OF CONSULTATION: 12/24/2019 Renal consultation ADDITIONAL ADMITTING PHYSICIAN: Dr. Shlomo Teague REASON FOR CONSULTATION: End-stage renal disease. HISTORY OF PRESENT ILLNESS: A 69-year-old male with end-stage renal disease, on hemodialysis Wednesday, Wednesday, and Wednesday, presented to [facility] with shortness of breath. The patient denies any fevers or chills. Has not had any sick contacts. The patient was noted to have pulmonary edema on x-ray and Nephrology consultation was called and dialysis was ordered. The patient during dialysis was cramping so severely that he was unable to have any fluid removed. REVIEW OF SYSTEMS: Twelve-point review of systems completed. All systems negative other than mentioned above. PAST MEDICAL HISTORY: 1. End-stage renal disease, on hemodialysis Wednesday, Wednesday, Wednesday. 2. Hypertension. 3. History of pleural effusion. PAST SURGICAL HISTORY: Left upper extremity AV fistula. SOCIAL HISTORY: No tobacco. No alcohol. No IV drugs. FAMILY HISTORY: Brother with end-stage renal disease. ALLERGIES: NO KNOWN DRUG ALLERGIES. CURRENT MEDICATIONS: See list. PHYSICAL EXAMINATION: VITAL SIGNS: Blood pressure 141/100, pulse 86, respiratory rate 29, and temperature 99.8. GENERAL: In no apparent distress. HEENT: Oropharynx clear. No scleral icterus. No peripheral edema. NECK: Supple. No elevation in jugular venous pressure. No lymphadenopathy. CHEST: Decreased breath sounds at bases anteriorly bilaterally, left greater than right. CARDIOVASCULAR: Regular rhythm. No murmurs or rubs. ABDOMEN: Soft. Positive bowel sounds. No tenderness. No rebound. EXTREMITIES: No edema. No clubbing. No cyanosis. LABORATORY DATA: White count 7.7, hemoglobin 10.8, hematocrit 33.4, and platelets 192. Sodium 139, potassium 5.2, chloride 98, CO2 of 28, BUN 36, creatinine 8.99, and glucose 122. BNP 3032. Albumin 3.7. IMAGING DATA: Chest x-ray, cardiomegaly with pulmonary edema, moderate left and small right pleural effusion. The lower lung zone pulmonary opacities may represent atelectasis or pneumonia. ASSESSMENT AND PLAN: 1. End-stage renal disease. We will plan for hemodialysis in the morning. The patient was seen at the end of dialysis, which was terminated due to severe cramping. 2. Congestive heart failure, appears compensated. 3. Left lower lobe infiltrate, rule out pneumonia. We will consult Pulmonary. The patient did have a low-grade fever. We will discuss with Dr. Healy, isolation status. 4. Hyperkalemia, corrected with dialysis. 5. Anemia secondary to chronic kidney disease. If the patient remains in the hospital, we will start the patient on Epogen. 6. Hypertension, improved with dialysis. Resume home meds. MD ETHEL Maya/TREVOR /[id number]
[2019-12-24] MEDS ORDERED: HYDRALAZINE HCL 20 MG/ML VIAL ONE (21:12)
[2019-12-24] MEDS: HYDRALAZINE HCL 20 MG/ML VIAL IV PRN (21:30)
[2019-12-24] MEDS ORDERED: METOPROLOL SUCC25 MG PO (21:33)
[2019-12-24] MEDS ORDERED: RENVELA0.8 GM PO (21:33)
[2019-12-24] MEDS ORDERED: NIFEDIPINE ER30 M1 PEG (21:33)
[2019-12-24] MEDS ORDERED: LASIX40 MG PO (21:34)
[2019-12-24] MEDS ORDERED: RENA-VITE TABL0.8 MG PO (21:35)
--- NOTE | 2019-12-24 22:10 | Diagnostic Imaging Report ---
EXAM: CT Chest WITHOUT contrast INDICATION: ^Y ^dyspnes ^[id number] ^2032 COMPARISON: Same day chest x-ray. TECHNIQUE: Chest was scanned utilizing a multidetector helical scanner from the lung apex through the level of the adrenal glands without administration of IV contrast. Absence of intravenous contrast decreases sensitivity for detection of lymphadenopathy and vascular pathology. Coronal and sagittal reformations were obtained. Routine protocol was performed. IV CONTRAST: None COMPLICATIONS: None RADIATION DOSE: Total DLP: 466.05 mGy*cm Estimated effective dose: (DLP x 0.014 x size factor) mSv CTDIvol has been reviewed. It is below the limits set by the Radiation Protocol Committee (RPC). FINDINGS: LINES/ TUBES: None. LUNGS AND AIRWAYS: Anterior lingular, left lower lobe, and right lower lobe consolidations with air bronchograms. Additionally there are bilateral patchy groundglass opacities, right greater than left. Mild interlobular septal thickening. Airways are normal. PLEURA: Moderate bilateral pleural effusions. The left pleural effusion has loculated and there is left pleural thickening. No pneumothorax. HEART AND MEDIASTINUM: The thyroid gland is normal. Mediastinal lymphadenopathy. No axillary lymphadenopathy. Cardiomegaly. There is a small pericardial effusion. Left brachiocephalic vein stent in place. Main pulmonary artery is dilated measuring 3.9 cm. Aneurysmal dilatation of ascending thoracic aorta, measuring 5.2 cm. UPPER ABDOMEN: Unremarkable. BONES: Degenerative changes of thoracic spine. SOFT TISSUES: Unremarkable. IMPRESSION: 1. Cardiomegaly, pulmonary vascular congestion, and mild interstitial edema. 2. Small pericardial effusion and moderate bilateral pleural effusions. The left pleural effusion is loculated and there is diffuse left pleural thickening. Left empyema cannot be excluded. 3. Bilateral consolidations as described above, representing atelectasis and/or pneumonia in the appropriate clinical context. Also the bilateral groundglass opacities raises the possibility of atypical or viral pneumonia. 4. Aneurysmal dilatation of ascending thoracic aorta, measuring 5.2 cm. 5. Mediastinal lymphadenopathy. Signed by: Dr. Brandon Cabrera MD on 12/24/2019 10:07 PM
--- NOTE | 2019-12-24 22:52 | NUR ---
Patient swabbed for COVID-[address] Healy.
--- NOTE | 2019-12-24 23:00 | NUR ---
Dr. Healy stated patient to go to COVID unit. inspection and testing supervisor notified.
[2019-12-24 23:48] VITALS: BP 201/95
[2019-12-24 23:53] VITALS: BP 201/95
[2019-12-25] VITALS (9 sets, daily range): BP systolic 133–210; BP diastolic 88–107
[2019-12-25] MEDS ORDERED: MORPHINE SULFATE INJ 4 MG/ML INJ 1ML IV STA (00:11)
[2019-12-25] MEDS: HYDRALAZINE HCL 20 MG/ML VIAL IV PRN ×3 (01:31→18:35)
[2019-12-25 05:43] LABS: BASOPHILS # (AUTO) 0.1 (0.0-0.1); BASOPHILS % 0.7 % (0.0-1.0); EOSINOPHILS # (AUTO) 1.5 (0.0-0.4); EOSINOPHILS % 22.6 % (0.0-6.0); HEMOGLOBIN 10.2 g/dL (14.0-18.0); LYMPHOCYTES # (AUTO) 0.8 (1.0-3.2); LYMPHOCYTES % 12.4 % (18.0-39.1); MEAN CORPUSCULAR HEMOGLOBIN 28.7 pg (28-32); MEAN CORPUSCULAR HGB CONC 31.9 g/dL (31-35); MEAN CORPUSCULAR VOLUME 90.1 fL (81-99); MONOCYTES # (AUTO) 0.5 (0.2-0.8); MONOCYTES % 6.7 % (4.4-11.3); NEUTROPHILS # (AUTO) 3.9 (2.1-6.9); NEUTROPHILS % 57.3 % (38.7-80.0); PLATELET COUNT 180 x10e3/uL (140-360); RED BLOOD COUNT 3.55 x10e6/uL (4.3-5.7); RED CELL DISTRIBUTION WIDTH 15.7 % (11.7-14.4)
[2019-12-25 06:09] LABS: ALBUMIN 3.4 g/dL (3.5-5.0); ALBUMIN/GLOBULIN RATIO 0.7 (0.8-2.0); ANION GAP 16.6 mmol/L (8-16); CALCIUM 8.9 mg/dL (8.4-10.2); CREATININE, SERUM 7.28 mg/dL (0.72-1.25); POTASSIUM 4.6 mmol/L (3.5-5.1)
[2019-12-25 07:09] LABS: ANISOCYTOSIS SLIGHT; EOSINOPHILS % (MANUAL) 21 % (0-7); HYPOCHROMASIA SLIGHT; LYMPHOCYTES % (MANUAL) 16 % (19-48); MONOCYTES % (MANUAL) 6 % (3.4-9.0); NEUTROPHILS % (MANUAL) 57 % (40-74); PLATELET ESTIMATE ADEQUATE; PLATELET MORPHOLOGY COMMENT NORMAL; RBC MORPHOLOGY COMMENT NORMAL
--- NOTE | 2019-12-25 07:24 | NUR ---
ASSUMED CARE. PT RESTING IN BED. AAOX3. ACYANOTIC. NO DISTRESS NOTED. CALL LIGHT IN REACH. BED LOW. SIDERAILS UP X2.
[2019-12-25] MEDS ORDERED: ZOLPIDEM TARTRATE 5 MG TAB PO PRN (08:00)
[2019-12-25] MEDS ORDERED: SODIUM CHLORIDE 0.9% 250ML 250 ML ONE (08:36)
[2019-12-25] MEDS: ASPIRIN 81 MG CHEW TAB PO SCH (08:42)
[2019-12-25] MEDS: FOLIC ACID/CYANOCOB/PYRIDOXINE TAB PO SCH (08:42)
[2019-12-25] MEDS: LOSARTAN POTASSIUM 100 MG TAB PO SCH (08:43)
[2019-12-25] MEDS: NIFEDIPINE CR 30 MG TAB PO SCH ×2 (08:43→17:10)
[2019-12-25] MEDS ORDERED: AZITHROMYCIN 500MG/NS 250 ML 250 ML IV SCH (09:00)
[2019-12-25] MEDS: CALCIUM ACETATE 667 MG GELCAP PO SCH ×3 (09:04→17:10)
--- NOTE | 2019-12-25 10:00 | NUR ---
Phone call visit. Pt didn't answer. Will follow up as able. CORNELIA SWANSON [facility] O: [phone]
[2019-12-25 10:35] LABS: INR 1.09; PROTHROMBIN TIME 14.8 seconds (11.9-14.5)
[2019-12-25] MEDS ORDERED: SODIUM CHLORIDE 0.9% 1000ML 2,000 ML ONE (10:39)
--- NOTE | 2019-12-25 10:49 | NUR ---
PATIENT REFUSED AZITHROMYCIN IV WHILE PHYSICIAN, {DR. STACEY Bello) WAS PRESENT AT BEDSIDE. PHYSICIAN THEN DISCONTINUED MEDICATION ON EMAR. AFTER PATIENT DISCUSSED THE MEDICATION WITH DAUGHTER, HE THEN REQUESTED THE ADMINISTRATION OF AZITHROMYCIN. DR. Eugenia IBARRA THEN NOTIFIED AND PHYSICIAN STATES, "YOU CAN GIVE IT TO HIM." ORDER CLARIFIED: AZYTHROMYCIN 500MG IV Q24H.
[2019-12-25] MEDS: AZITHROMYCIN 500MG/NS 250 ML 250 ML IV SCH (11:33)
--- NOTE | 2019-12-25 12:30 | NUR ---
HEMODIALYSIS TREATMENT NURSE CURRENTLY AT PATIENT'S BEDSIDE. HEMODIALYSIS TREATMENT IN PROGRESS VIA LEFT UPPER ARM FISTULA. NO DISTRESS NOTED. PATIENT RESTING IN BED. NO DISTRESS NOTED.
--- NOTE | 2019-12-25 13:31 | Consultation ---
DATE OF CONSULTATION: Pulmonary Critical Care Consultation CHIEF COMPLAINT: Dyspnea. HISTORY OF PRESENT ILLNESS: The patient is a 69-year-old man. He has a history of hypertension and end-stage renal disease. He required hospitalization at [facility] approximately a year ago for accelerated hypertension and dyspnea. He had a left pleural effusion at that time that required thoracentesis. Pleural fluid was a transudate at that time. He now complains of worsening dyspnea. He denies cough or fevers. Apparently, they attempted dialysis yesterday, but he developed cramps. He was subsequently evaluated in the ER with a CT scan that showed partially loculated left pleural effusion as well as some bibasilar infiltrates and possibly some ground-glass opacities in the right lung. PAST SURGICAL HISTORY: Status post AV fistula. PAST MEDICAL HISTORY: 1. End-stage renal disease. 2. Hypertension. SOCIAL HISTORY: The patient is a lifelong nonsmoker. He is not a drinker. 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 ALLERGIES: NO KNOWN DRUG ALLERGIES. FAMILY HISTORY: Family history is significant for a brother with end-stage renal disease. REVIEW OF SYSTEMS: The patient denies any fever. He is not having any headache or neck pain. He does not complain of chest pain. He does have shortness of breath. There is minimal cough. He has no abdominal pain. He has no nausea or vomiting. He has no leg edema. PHYSICAL EXAMINATION: VITAL SIGNS: The patient is afebrile. The blood pressure is 208/103 and the pulse is 84. Saturation is 95%. HEENT: Shows no facial swelling or erythema. The oropharynx is normal. LYMPHATIC: Shows no submandibular, cervical, or supraclavicular adenopathy. CARDIAC: Reveals regular rate and rhythm with normal S1 and S2. LUNGS: Auscultation of lungs shows decreased breath sounds on the left side. There is no wheezing. ABDOMEN: Soft and nontender. There is no rebound or guarding. There is inguinal hernia in the right groin. EXTREMITIES: There is no leg edema. NEUROLOGICAL: Shows no focal abnormalities. LABORATORY DATA: White blood cell count is 6.7 and hemoglobin is 10.2. The platelet count is 180. BUN to creatinine ratio is normal. Other electrolytes are within normal limits. RADIOGRAPHIC DATA: Chest CT shows cardiomegaly as well as left pleural effusion with some loculation. There is some ground-glass opacity mostly in the right lung as well as some bibasilar infiltrates in the left lower lobe. IMPRESSION: 1. Dyspnea which is multifactorial. 2. Possible viral pneumonia. 3. Left pleural effusion. 4. End-stage renal disease. 5. Accelerated hypertension. 6. Anemia. 7. Inguinal hernia. PLAN: 1. Control blood pressure. 2. Await coronavirus testing. Consider treatment with Zithromax, which the patient is reluctant to accept at this time. 3. Dialysis as needed. 4. Cardiology evaluation. 5. Surgical consultation for inguinal hernia when stable. Shon Healy MD [facility]/MODL /[id number]
[2019-12-25] MEDS ORDERED: ACETAMINOPHEN 325 MG TAB PO PRN (14:45)
[2019-12-25] MEDS ORDERED: ACETAMINOPHEN 325 MG TAB ONE (14:56)
[2019-12-25 17:23] LABS: BODY FLUID APPEARANCE CLOUDY; BODY FLUID COLOR RED; BODY FLUID TYPE PLEURAL
--- NOTE | 2019-12-25 17:36 | Progress Note ---
DATE: SUBJECTIVE: This is a 69-year-old male who has history of hypertension and end-stage renal disease, on hemodialysis. The patient comes in with dyspnea. The patient has no fever, no cough. He has come in with shortness of breath. He was supposed to have dialysis yesterday, but he has cramps, came to the emergency room where he was found to have left pleural effusion. The patient is sent to the hospital to be admitted. The patient do have history of end-stage disease, history of hypertension. No smoking, drug abuse, or alcohol abuse. Family history of hypertension. The patient comes in with the above complaints and he is being admitted. PAST MEDICAL HISTORY: 1. Hypertension. 2. End-stage disease on hemodialysis. 3. Pleural effusion. PAST SURGICAL HISTORY: Left upper extremity AV fistula. ALLERGIES: NKA. SOCIAL HISTORY: There is no smoking, drug abuse, or abuse. FAMILY HISTORY: Hypertension. REVIEW OF SYSTEMS: Besides the shortness of breath, he denies any fever and chills. PHYSICAL EXAMINATION: GENERAL: He is currently alert, oriented, does not seem in acute distress. VITAL SIGNS: Afebrile since admission. HEENT: Not icteric. NECK: Supple. CHEST: Few crackles. COR: S1-S2, no murmur. ABDOMEN: Soft. EXTREMITIES: No edema. SKIN: No rash. IMPRESSION: 1. Shortness of breath, I think it is fluid overload. 2. Acute on chronic congestive heart failure. 3. Small bilateral pleural effusion, concerned about empyema, bilateral consolidation. RECOMMENDATIONS: Blood cultures, urine cultures, ultrasound guided aspiration, sent for cell count and diff, protein, glucose, Gram stain. We will put the patient on Rocephin 1 g daily. COVID-19 was sent since the patient came in the epidemic of COVID-19. End-stage disease on hemodialysis. We will follow. MD KENNY Winter/TREVOR /[id number]
[2019-12-25] MEDS: CEFTRIAXONE SOD 1 GM/NS 50 ML 50 ML IV SCH (18:00)
[2019-12-25 18:07] LABS: RBC,BODY FLUID 4153 cells/uL; WBC,BODY FLUID 50 cells/uL
[2019-12-25 18:25] LABS: EOSINOPHILS,BODY FLUID 2 %; LYMPHOCYTES,BODY FLUID 27 %; MONO/MACROPHG,BODY FLUID 65 %; NEUTROPHILS,BODY FLUID 6 %
--- NOTE | 2019-12-25 19:09 | Diagnostic Imaging Report ---
EXAMINATION: CHEST XRAY POST PROCEDURE INDICATION: ^POST THORACENTESIS COMPARISON: 12/24/2019 Chest radiograph 03/12/2019. FINDINGS: TUBES and LINES: None. LUNGS/PLEURA: Lungs are well inflated. There are bilateral interstitial and alveolar opacities. Hazy opacities in the bilateral mid and lower lung zones, left greater than right. Moderate left and small right pleural effusions. The pleural effusions appear to be slightly smaller when compared with the prior exam. HEART AND MEDIASTINUM: The cardiomediastinal silhouette is mildly enlarged. Vascular stent overlies the upper mediastinum. Atherosclerotic calcifications of the aortic arch. BONES AND SOFT TISSUES: No acute osseous lesion. Soft tissues are unremarkable. UPPER ABDOMEN: No free air under the diaphragm. IMPRESSION: Cardiomegaly with pulmonary edema, moderate left and small right pleural effusions and lower lung zone predominant opacities, which may represent atelectasis or pneumonia. The pleural effusions appear to be slightly smaller when compared with the prior exam. No pneumothorax is seen. Signed by: Dr. Richie Baumann M.D. on 12/25/2019 7:05 PM
[2019-12-25] MEDS ORDERED: DOXAZOSIN MESYLATE 2 MG TAB PO SCH (21:00)
--- NOTE | 2019-12-25 22:58 | History and Physical ---
CHIEF COMPLAINT: Shortness of breath. HISTORY OF PRESENT ILLNESS: A 69-year-old male with history of ESRD on dialysis, hypertension, came into the ED with complaints of shortness of breath ongoing for the last several days. The patient is very compliant with his HD. He is not sure if they actually did an increased ultrafiltration during hemodialysis. He presented to the emergency room with cough, congestion, and shortness of breath needing further evaluation and management. The patient was in the process of having hemodialysis in the ER, but the patient began to cramp as they were trying to do increased ultrafiltration and during that time, the family program specialist decided to admit the patient for further evaluation and management. The patient is now admitted, being ruled out for COVID-19. The patient is seen and evaluated at bedside on the medical floor. Currently, he is doing well with no other issues at this time. The patient was on very low oxygen during my evaluation. REVIEW OF SYSTEMS: Pertinent positives: Shortness of breath, cough, and congestion. The rest of 14-point review of systems are reviewed with the patient and are negative. ALLERGIES: NO KNOWN DRUG ALLERGIES. HOME MEDICATIONS: 1. Aspirin. 2. PhosLo. 3. Doxazosin. 4. Folic acid. 5. Vitamin B with Rahel-Pb tablets. 6. Losartan. 7. Nifedipine XR-ER. 8. Lasix 40 mg b.i.d. 9. Metoprolol succinate. PAST MEDICAL HISTORY: ESRD on dialysis, hypertension, BPH, anemia of ESRD, secondary hyperparathyroidism. PAST SURGICAL HISTORY: He has an AV fistula. FAMILY HISTORY: He reports none. SOCIAL HISTORY: No drugs. No alcohol. Does not smoke. Good social support. PHYSICAL EXAMINATION: VITAL SIGNS: Temperature is 97.9, pulses 80, respiratory rate is 21, blood pressure 133/88, and pulse ox 95%. He is on room air. GENERAL: Not in acute distress. Alert and oriented x3. Cooperative on examination. HEENT: Head; normocephalic, atraumatic. Eyes; pupils are equal, round, and reactive to light bilaterally. Extraocular movements intact bilaterally. Throat; no evidence of erythema or exudates in the posterior pharynx. Has poor dentition. NECK: Supple. Good range of motion. PULMONARY: Clear to auscultation bilaterally. No wheezing, no rales, no rhonchi, no crackles appreciated. CARDIOVASCULAR: Positive S1 and S2. No murmurs, rubs, or gallops appreciated. ABDOMEN: Soft, nondistended, and nontender to palpation. Bowel sounds present. MUSCULOSKELETAL: Strength is 5/5 throughout. No evidence of any muscle deficits on examination. No weakness appreciated. NEUROLOGIC: Cranial nerve II through XII grossly intact. No evidence of any neurological deficits on exam. SKIN: Intact. Warm to touch. Good cap refill. PSYCHIATRIC: Normal affect and mood. EXTREMITIES: No edema. Good range of motion throughout. LABORATORY FINDINGS: Show white count 6.7, hemoglobin 10.2, hematocrit is 32, platelets of 180. Chemistry; sodium 141, potassium 4.6, chloride 100, bicarb 29, anion gap of 16, BUN is 27, creatinine 7.28, glucose 85, calcium 8.9. AST is 20, ALT 8, alkaline phosphatase 75. Troponins were negative, 0.046. BNP 3032. Total protein is 8.1, albumin is 3.4. Pleural fluid. Kincaid virus PCR pending. Flu negative. Group B, group A strep negative. Hepatitis panel pending. MICROBIOLOGY: Throat cultures, no growth. IMAGING STUDIES: Chest x-ray showed evidence of pulmonary edema. Chest CTA shows bilateral consolidation, can represent atelectasis or underlying pneumonia. Also, there is bilateral ground-glass opacity raises the possibility of atypical viral pneumonia. There is an aneurysmal dilatation of the ascending aorta measuring 5.2 cm. There is some mediastinal lymphadenopathy. There is some left pleural effusion, loculated diffuse left pleural thickening. There is some evidence of interstitial edema. Mediastinal lymphadenopathy. Could be infectious in nature. IMPRESSION: 1. Respiratory distress with underlying pulmonary edema. 2. Probable healthcare associated pneumonia. 3. End-stage renal disease, on hemodialysis with volume overload. 4. Ascending aorta aneurysm at 5.2 cm. 5. Hypertension. PLAN: At this time, Pulmonary has been consulted. The patient underwent thoracentesis this afternoon. He is breathing much better. Nephrology consulted for HD management with increased ultrafiltration. He will continue with IV antibiotics for underlying pneumonia and ID is following. We will monitor all cultures. COVID-19 PCR still pending. I will go ahead and consult with Cardiology about this ascending aortic aneurysm and get a 2D echo. Continue with a renal diet. Monitor very closely. Follow with the consultants. MD TITA Golden/TREVOR /[id number]
[2019-12-26] MEDS: HYDRALAZINE HCL 20 MG/ML VIAL IV PRN ×2 (01:15→17:04)
[2019-12-26 04:29] VITALS: BP 170/83
[2019-12-26 08:00] VITALS: BP 168/91
[2019-12-26] MEDS: FOLIC ACID/CYANOCOB/PYRIDOXINE TAB PO SCH (08:13)
[2019-12-26] MEDS: CALCIUM ACETATE 667 MG GELCAP PO SCH ×3 (08:13→17:04)
[2019-12-26] MEDS: ASPIRIN 81 MG CHEW TAB PO SCH (08:13)
[2019-12-26 08:43] VITALS: BP 168/91
[2019-12-26] MEDS: LOSARTAN POTASSIUM 100 MG TAB PO SCH (08:48)
[2019-12-26] MEDS: NIFEDIPINE CR 30 MG TAB PO SCH ×2 (08:48→17:04)
--- NOTE | 2019-12-26 11:09 | Progress Note ---
DATE: SUBJECTIVE: The patient had a thoracentesis yesterday. He feels much better. He is afebrile. He is very eager to go home. PHYSICAL EXAMINATION: VITAL SIGNS: The patient is afebrile. The vital signs are stable. HEENT: Shows no facial swelling or erythema. CARDIAC: Reveals regular rate and rhythm with normal S1 and S2. LUNGS: Auscultation of lungs reveals clear breath sounds bilaterally. There is no wheezing. ABDOMEN: Soft, nontender. There is no rebound or guarding. EXTREMITIES: Show no leg edema or calf tenderness. IMPRESSION: 1. Dyspnea secondary to transudative pleural effusion. 2. Atypical pneumonia. 3. End-stage renal disease. 4. Accelerated hypertension. 5. Thoracic aortic aneurysm. 6. Anemia. PLAN: 1. Okay for discharge home. 2. Continue dialysis as needed. 3. Complete evaluation for thoracic aneurysm. MD JAZMIN Lainez/TREVOR /[id number]
[2019-12-26] MEDS: AZITHROMYCIN 500MG/NS 250 ML 250 ML IV SCH (11:35)
[2019-12-26 11:58] VITALS: BP 164/87
--- NOTE | 2019-12-26 16:20 | Progress Note ---
DATE: SUBJECTIVE: Mr. Celis is doing much better today. There were no complaints. Review of systems totally negative. He had thoracocentesis. He is feeling much better. He wants to go home. There is no fever, no chills. No cough. His serology for COVID-19 is still pending unfortunately, but his influenza A and B and strep all negative. PHYSICAL EXAMINATION: GENERAL: He is currently alert, oriented, does not seem to be in acute distress. VITAL SIGNS: Stable, currently afebrile. HEENT: Not icteric. NECK: Supple. CHEST: Clear. HEART: S1, S2. No S3, S4 or murmurs. ABDOMEN: Soft. Bowel sounds present. EXTREMITIES: No edema. SKIN: No rash. IMPRESSION: Shortness of breath, resolved, fluid overload, pleural effusion, have doubt infection. The patient can be discharged home from Infectious Disease point of view. However, because waiting on COVID-19 to see if it is negative, he can go back to dialysis unit. Hopefully, we can find answer soon. Discussed with Internal Medicine. MD KENNY Winter/TREVOR /[id number]
[2019-12-26] MEDS: CEFTRIAXONE SOD 1 GM/NS 50 ML 50 ML IV SCH (17:40)
[2019-12-26 17:50] VITALS: BP 181/98
[2019-12-26] MEDS ORDERED: AZITHROMYCIN250 MG PO (19:11)
--- NOTE | 2019-12-26 19:24 | NUR ---
REPORT RECEIVED BY NIGHT NURSE. PATIENT WAITING CURRENTLY ON RIDE
--- NOTE | 2019-12-26 22:02 | Discharge Summary ---
FINAL DISCHARGE DIAGNOSES: 1. Respiratory distress secondary to pulmonary edema. 2. Probable community-acquired pneumonia. 3. End-stage renal disease, on hemodialysis. 4. Ascending aortic aneurysm-5.2 cm, cut-off is approximately 5.5 cm, the patient did not want to stay longer to be further evaluated, in which I advised him to follow up with Cardiology as an outpatient. 5. Hypertension. CONSULTANTS: 1. Nephrology. 2. Pulmonary. 3. Infectious Disease. PHYSICAL EXAMINATION: VITAL SIGNS: Temperature is 97.5, pulse 85, respiratory rate is 19, blood pressure 164/87, pulse ox 94% on room air. LABORATORY DATA: White count 6.7, hemoglobin 10.2, hematocrit is 32, platelets of 180. Coagulation; PT 14, INR 1.09. Chemistry; sodium 141, potassium 4.6, chloride 100, bicarb 29, anion gap of 16, BUN is 27, creatinine is 7.28, glucose 85, calcium 8.9, total bilirubin is 0.8, AST 20, ALT 8, alkaline phosphatase 75. Troponins were negative. BNP 3032. Albumin 3.4. SEROLOGIES: Kincaid virus PCR negative. Hepatitis negative. Influenza negative. Group A strep negative. MICROBIOLOGY: Throat cultures negative. IMAGING STUDIES: Chest x-ray shows cardiomegaly, pulmonary edema, pleural effusion. Chest CT showed some evidence of cardiomegaly, pulmonary vascular congestion. There are some moderate pleural effusions, in which the patient underwent status post thoracentesis. There are some concerns of questionable consolidation. He does have mediastinal lymphadenopathy, which I discussed with him to follow up as an outpatient. He did have some 5.2 cm aneurysmal dilatation of the ascending aorta, in which I discussed with him to follow up as well as an outpatient as the patient refuses to stay here in the hospital any longer. Repeat chest x-ray post thoracentesis seems to have shown some improvement. No evidence of pneumothorax. HOSPITAL COURSE: A 69-year-old male, who came into the ED with shortness of breath after found to have some pulmonary edema on imaging studies. The patient is a dialysis patient. The patient initially was supposed to get hemodialysis and discharge from the ER instead. The patient was cramping due to increased ultrafiltration and was admitted for further evaluation and management. While here in the hospital, the patient received several HD treatments by Nephrology for increased ultrafiltration. Pulmonary was consulted, in which the patient underwent a thoracentesis. The patient's breathing improved throughout the hospital course. ID was consulted, in which the patient was being treated for underlying community-acquired pneumonia, discharged on oral antibiotics. He was on IV antibiotics here. He was also being ruled out for kincaid virus, in which it came back to be negative. His flu was negative. Group A strep was negative. Throat cultures were negative. The patient's blood pressure medications were adjusted accordingly. The patient was very eager to being discharged to home. He refused to be evaluated by Cardiology. His CT shows ascending aortic aneurysm 5.2 cm, usually the cut-off is approximately 5.5 cm. I discussed with him to please follow up with Cardiology as an outpatient. He verbalized understanding. He also has some mediastinal lymphadenopathy and recommended repeat CT in 3-4 weeks to see if this is infectious in nature and he verbalized understanding. On discharge, the patient was at baseline with no complaints. He refused to stay longer. His kept calling several times throughout the hospital course demanding to be discharged. Since the patient's kincaid virus PCR is negative, he is cleared to go to his dialysis unit. I recommended for him to be very patient and follow up with the appropriate consults as described above. On the day of discharge, the patient was evaluated thoroughly throughout prior to being discharged to home. The patient was cleared for discharge by all consultants. The patient verbalized understanding and agreed to plan of care to follow up as an outpatient with the PCP in 1 week and the consults described above, especially Cardiology in the next two weeks and repeat CT in about 3-4 weeks time. The patient verbalized understanding. MEDICATIONS: See med reconciliation form. DISPOSITION: Home. CONDITION: Stable. DIET: Heart healthy. In the event of any worsening symptoms, the patient was advised to come back to the ED for further evaluation. Discharge summary took greater than 35 minutes. MD TITA Golden/TREVOR /[id number]
--- NOTE | 2019-12-27 10:53 | Diagnostic Imaging Report ---
PROCEDURE: Ultrasound-guided thoracentesis Procedural Personnel Attending physician(s): Marguerite Rosario MD Fellow physician(s): None Resident physician(s): None Advanced practice provider(s): None Pre-procedure diagnosis: Pleural effusion Post-procedure diagnosis: Same Indication: Pleural effusion with suspicion of infection Additional clinical history: None Complications: No immediate complications. IMPRESSION: Ultrasound-guided thoracentesis with drainage of 300 mL of serosanguinous fluid. Plan: Resume care by clinical team. PROCEDURE SUMMARY: - Limited thoracic ultrasound - Ultrasound-guided thoracentesis - Additional procedure(s): None PROCEDURE DETAILS: Pre-procedure Consent: Informed consent for the procedure including risks, benefits and alternatives was obtained and time-out was performed prior to the procedure. Preparation: The site was prepared and draped using maximal sterile barrier technique including cutaneous antisepsis. Anesthesia/sedation Level of anesthesia/sedation: No sedation Anesthesia/sedation administered by: Not applicable Total intra-service sedation time (minutes): Limited thoracic ultrasound Limited thoracic ultrasound was performed using a curved transducer. A safe window for thoracentesis was identified. Left hemithorax findings: Small pleural effusion Right hemithorax findings: Small pleural effusion Thoracentesis Local anesthesia was administered. The pleural space was accessed under real-time ultrasound guidance and fluid return confirmed position. The fluid was drained. The catheter was removed, and a sterile bandage was applied. Catheter placed: 5F Bianca Post-drainage hemithorax findings: No visible pleural effusion Additional Details Additional description of procedure: None Equipment details: None Specimens removed: Pleural fluid Estimated blood loss (mL): Less than 10 Standardized report: [email or web address] Attestation Signer name: Marguerite Rosario MD I attest that I was present for the entire procedure. I reviewed the stored images and agree with the report as written. Signed by: Marguerite Rosario MD on 12/27/2019 10:50 AM
== END 2019-12-26 19:52 | disposition home or self-care (01) | DRG 291 ==
LOC: ER 13:11 → ERHOLD 18:45 → IMCU 23:20
PROVIDERS: ADMIT Internal Medicine; ATTEND Internal Medicine
PROC: 5A1D70Z Performance of Urinary Filtration, Intermittent, Less than 6 Hours Per Day (ICD-10-PCS; 2019-12-24)
PROC: 0W9B3ZZ Drainage of Left Pleural Cavity, Percutaneous Approach (ICD-10-PCS; principal; 2019-12-25)
DX: I13.2 Hypertensive heart and chronic kidney disease with heart failure and with stage 5 chronic kidney disease, or end stage renal disease (principal); J18.9 Pneumonia, unspecified organism; N18.6 End stage renal disease; I50.23 Acute on chronic systolic (congestive) heart failure; J81.0 Acute pulmonary edema; J90 Pleural effusion, not elsewhere classified; Z99.2 Dependence on renal dialysis; I71.2 Thoracic aortic aneurysm, without rupture; R06.03 Acute respiratory distress; K40.90 Unilateral inguinal hernia, without obstruction or gangrene, not specified as recurrent; D64.9 Anemia, unspecified; R59.0 Localized enlarged lymph nodes
CPT/HCPCS: 32555; 36415; 71045; 71250; 74470; 80053; 82550; 82553; 83518; 83615; 83880; 84157; 84484; 85025; 85610; 87070; 87340; 87400; 87635; 88112; 88305; 89051; 99284; J0360; J0456; J0696; J7030; J7050

== ENCOUNTER → 2020-12-24 | Day surgery (SDC) | payer MEDICARE ==
[~2020-12-24] MED LIST changes: +ATROPINE SULFATE 1 MG/ML VIAL ONE; +AZITHROMYCIN250 MG PO; +BUPIVACAINE HCL 0.5% INJ 30 ML VIAL INJ ONE; +CEFAZOLIN SOD 1 GM/NS 50ML 50 ML IV ONE; +DEXAMETHASONE SOD PHOS INJ 4 MG/ML VIAL ONE; +ETOMIDATE 2 MG/ML 10 ML INJ IV ONE; +FENTANYL CITRATE/PF 100MCG/2 ML INJ ONE; +KETOROLAC TROMETHAMINE 30 MG/ML VIAL ONE; +LASIX40 MG PO; +METOPROLOL SUCC25 MG PO; +MIDAZOLAM HCL 2 MG/2 ML VIAL ONE; +NEOSTIGMINE 1 MG/ML 10ML VIAL ONE; +ONDANSETRON HCL INJ 2MG/ML 2ML 2 MG/ML VIAL ONE; +RENA-VITE TABL0.8 MG PO; +RENVELA0.8 GM PO; +ROCURONIUM BROMIDE 10 MG/ML 5ML VIAL IV ONE; +SEVOFLURANE INHAL SOLN 250 ML PEN BTL ONE; +SODIUM CHLORIDE 0.9% 500ML 500 ML ONE
[2020-12-24 07:01] LABS: BASOPHILS % 0.9 % (0.0-1.0); EOSINOPHILS # (AUTO) 0.7 (0.0-0.4); HEMATOCRIT 32.8 % (38.2-49.6); HEMOGLOBIN 10.6 g/dL (14.0-18.0); LYMPHOCYTES # (AUTO) 0.7 (1.0-3.2); LYMPHOCYTES % 16.7 % (18.0-39.1); MEAN CORPUSCULAR HEMOGLOBIN 30.4 pg (28-32); MEAN CORPUSCULAR HGB CONC 32.3 g/dL (31-35); MONOCYTES # (AUTO) 0.4 (0.2-0.8); NEUTROPHILS # (AUTO) 2.5 (2.1-6.9); NEUTROPHILS % 57.2 % (38.7-80.0); PLATELET COUNT 156 x10e3/uL (140-360); RED BLOOD COUNT 3.49 x10e6/uL (4.3-5.7); RED CELL DISTRIBUTION WIDTH 15.2 % (11.7-14.4)
[2020-12-24 07:10] LABS: ANION GAP 18.5 mmol/L (8-16); CALCIUM 9.1 mg/dL (8.4-10.2); CREATININE, SERUM 6.52 mg/dL (0.72-1.25); POTASSIUM 4.5 mmol/L (3.5-5.1)
[2020-12-24 07:29] LABS: INR 1.01; PROTHROMBIN TIME 13.9 seconds (11.9-14.5)
[2020-12-24 07:30] LABS: PARTIAL THROMBOPLASTIN TIME 45.1 seconds (23.8-35.5)
[2020-12-24 11:30] VITALS: BP 170/93
== END | disposition home or self-care (01) ==
LOC: OR 05:42
PROVIDERS: ATTEND Surgery
DX: K40.90 Unilateral inguinal hernia, without obstruction or gangrene, not specified as recurrent (principal); R18.8 Other ascites; I12.0 Hypertensive chronic kidney disease with stage 5 chronic kidney disease or end stage renal disease; N18.6 End stage renal disease; Z01.810 Encounter for preprocedural cardiovascular examination; Z01.812 Encounter for preprocedural laboratory examination; Z01.818 Encounter for other preprocedural examination; Z20.822 Contact with and (suspected) exposure to COVID-19; Z99.2 Dependence on renal dialysis
CPT/HCPCS: 36415; 49505; 71046; 80048; 85025; 85610; 85730; 93005; C1781; J0461; J0690; J1100; J1885; J2250; J2405; J2710; J3010; J7040; U0002 ×2

== ENCOUNTER 2023-06-07 15:10 | Inpatient (IN) | payer MEDICARE ==
[~2023-06-07] VITALS: Ht 167.6 cm; Wt 63.7 kg
[~2023-06-07 15:10] MED LIST changes: -ATROPINE SULFATE 1 MG/ML VIAL ONE; -BUPIVACAINE HCL 0.5% INJ 30 ML VIAL INJ ONE; -CEFAZOLIN SOD 1 GM/NS 50ML 50 ML IV ONE; -DEXAMETHASONE SOD PHOS INJ 4 MG/ML VIAL ONE; -ETOMIDATE 2 MG/ML 10 ML INJ IV ONE; -FENTANYL CITRATE/PF 100MCG/2 ML INJ ONE; -KETOROLAC TROMETHAMINE 30 MG/ML VIAL ONE; -MIDAZOLAM HCL 2 MG/2 ML VIAL ONE; -NEOSTIGMINE 1 MG/ML 10ML VIAL ONE; -ONDANSETRON HCL INJ 2MG/ML 2ML 2 MG/ML VIAL ONE; -ROCURONIUM BROMIDE 10 MG/ML 5ML VIAL IV ONE; -SEVOFLURANE INHAL SOLN 250 ML PEN BTL ONE; -SODIUM CHLORIDE 0.9% 500ML 500 ML ONE
[2023-06-07 18:36] LABS: BASOPHILS % 0.2 % (0.0-1.0); EOSINOPHILS # (AUTO) 0.5 (0.0-0.4); EOSINOPHILS % 3.7 % (0.0-6.0); HEMATOCRIT 28.1 % (38.2-49.6); HEMOGLOBIN 9.7 g/dL (14.0-18.0); LYMPHOCYTES # (AUTO) 0.7 (1.0-3.2); LYMPHOCYTES % 5.9 % (18.0-39.1); MEAN CORPUSCULAR HEMOGLOBIN 28.8 pg (28-32); MEAN CORPUSCULAR HGB CONC 34.5 g/dL (31-35); MEAN CORPUSCULAR VOLUME 83.4 fL (81-99); MONOCYTES # (AUTO) 0.8 (0.2-0.8); MONOCYTES % 6.3 % (4.4-11.3); NEUTROPHILS # (AUTO) 10.1 (2.1-6.9); NEUTROPHILS % 83.4 % (38.7-80.0); PLATELET COUNT 256 x10e3/uL (140-360); RED BLOOD COUNT 3.37 x10e6/uL (4.3-5.7); RED CELL DISTRIBUTION WIDTH 13.9 % (11.7-14.4); WHITE BLOOD COUNT 12.12 x10e3/uL (4.8-10.8)
[2023-06-07 18:48] LABS: ALBUMIN 3.1 g/dL (3.5-5.0); ALBUMIN/GLOBULIN RATIO 0.5 (0.8-2.0); CALCIUM 9.3 mg/dL (8.4-10.2); CREATININE, SERUM 5.11 mg/dL (0.72-1.25); MAGNESIUM 2.4 MG/DL (1.3-2.1)
[2023-06-07 20:12] LABS: INR 1.14; PROTHROMBIN TIME 15.3 seconds (11.9-14.5)
[2023-06-07 20:13] LABS: PARTIAL THROMBOPLASTIN TIME 51.3 seconds (23.8-35.5)
[2023-06-07] MEDS ORDERED: Morphine 4mg INJECTION 4 MG/ML INJ IV PRN (20:15)
[2023-06-07] MEDS ORDERED: SODIUM CHLORIDE FLUSH 10 ML SYR INJ PRN (20:15)
[2023-06-07] MEDS ORDERED: ONDANSETRON HCL INJ 2MG/ML 2ML 2 MG/ML VIAL IV PRN (20:15)
[2023-06-07 21:30] VITALS: PULSE 82; RESP 20; O2SAT 96
[2023-06-07] MEDS ORDERED: Morphine 2mg Syringe 2 MG/ML SYR IV PRN (23:30)
[2023-06-07] MEDS ORDERED: MELATONIN 3 MG TAB PO PRN (23:30)
[2023-06-07] MEDS ORDERED: ACETAMINOPHEN 325 MG TAB PO PRN (23:30)
[2023-06-07] MEDS ORDERED: ALBUTEROL/IPRATROPIUM 3 ML NEB NEB PRN (23:30)
[2023-06-07] MEDS ORDERED: DOCUSATE SODIUM 100 MG CAP PO PRN (23:30)
[2023-06-08] VITALS (10 sets, daily range): BP systolic 145–175; BP diastolic 72–80; PULSE 67–84; RESP 17–22; TEMP 98.1–99; O2SAT 95–100
[2023-06-08] MEDS ORDERED: ACETAMINOPHEN 325 MG TAB PO STA
[2023-06-08] MEDS: Doxycycline IV 100 MG in SODIUM CHLORIDE 0.9% 100 ML IV SCH ×3 (00:11→23:42)
[2023-06-08] MEDS: HYDRALAZINE HCL 20 MG/ML VIAL IV PRN (00:22)
[2023-06-08] MEDS ORDERED: IOPAMIDOL 370 MG/ML 100 ML INFUS..BTL INJ ONE (03:22)
[2023-06-08] MEDS ORDERED: SODIUM CHLORIDE 0.9% 500ML 500 ML ONE (05:15)
[2023-06-08 05:43] LABS: BASOPHILS % 0.5 % (0.0-1.0); EOSINOPHILS # (AUTO) 0.6 (0.0-0.4); EOSINOPHILS % 7.4 % (0.0-6.0); HEMATOCRIT 24.6 % (38.2-49.6); HEMOGLOBIN 8.5 g/dL (14.0-18.0); LYMPHOCYTES # (AUTO) 0.7 (1.0-3.2); LYMPHOCYTES % 8.7 % (18.0-39.1); MEAN CORPUSCULAR HEMOGLOBIN 28.9 pg (28-32); MEAN CORPUSCULAR HGB CONC 34.6 g/dL (31-35); MEAN CORPUSCULAR VOLUME 83.7 fL (81-99); MONOCYTES # (AUTO) 0.7 (0.2-0.8); MONOCYTES % 8.2 % (4.4-11.3); NEUTROPHILS # (AUTO) 6.3 (2.1-6.9); NEUTROPHILS % 74.5 % (38.7-80.0); PLATELET COUNT 211 x10e3/uL (140-360); RED BLOOD COUNT 2.94 x10e6/uL (4.3-5.7); RED CELL DISTRIBUTION WIDTH 13.8 % (11.7-14.4); WHITE BLOOD COUNT 8.39 x10e3/uL (4.8-10.8)
[2023-06-08 06:21] LABS: ALBUMIN 2.8 g/dL (3.5-5.0); ALBUMIN/GLOBULIN RATIO 0.6 (0.8-2.0); CALCIUM 8.5 mg/dL (8.4-10.2); CREATININE, SERUM 6.08 mg/dL (0.72-1.25)
[2023-06-08] MEDS: CALCIUM ACETATE 667 MG GELCAP PO SCH ×3 (08:00→17:18)
[2023-06-08] MEDS ORDERED: ONDANSETRON HCL 4 MG ORAL DISINTEGRATING TAB PO PRN (08:30)
[2023-06-08] MEDS: LOSARTAN POTASSIUM 100 MG TAB PO SCH ×2 (09:00→17:22)
[2023-06-08] MEDS ORDERED: NIFEDIPINE CR 30 MG TAB PO SCH (09:00)
[2023-06-08] MEDS ORDERED: FOLIC ACID/CYANOCOB/PYRIDOXINE TAB PO SCH (09:00)
[2023-06-08] MEDS: DOXAZOSIN MESYLATE 2 MG TAB PO SCH ×2 (10:50→17:18)
[2023-06-08] MEDS: FUROSEMIDE 40 MG TAB PO SCH ×2 (10:54→17:19)
[2023-06-08 12:45] LABS: BODY FLUID COLOR YELLOW; BODY FLUID TYPE PLEURAL
[2023-06-08 12:46] LABS: BODY FLUID APPEARANCE CLEAR
[2023-06-08 12:48] LABS: RBC,BODY FLUID 1000 cells/uL; WBC,BODY FLUID 42 cells/uL
[2023-06-08 13:08] LABS: GLUCOSE,BODY FLUID 20 mg/dL
[2023-06-08 14:05] LABS: LYMPHOCYTES,BODY FLUID 8 %; MONO/MACROPHG,BODY FLUID 2 %; NEUTROPHILS,BODY FLUID 90 %
[2023-06-08 16:19] LABS: FREE T4 (FREE THYROXINE) 1.28 ng/dL (0.8-1.8); THYROID STIMULATING HORMONE 6.917 uIU/mL (0.350-4.940)
[2023-06-08] MEDS: FOLIC ACID/CYANOCOB/PYRIDOXINE TAB PO SCH (17:17)
[2023-06-09] VITALS (7 sets, daily range): BP systolic 128–197; BP diastolic 73–84; PULSE 62–89; RESP 18–20; TEMP 98.1–99; O2SAT 95–100
[2023-06-09 05:34] LABS: BASOPHILS # (AUTO) 0.1 (0.0-0.1); BASOPHILS % 0.5 % (0.0-1.0); EOSINOPHILS # (AUTO) 0.7 (0.0-0.4); EOSINOPHILS % 7.7 % (0.0-6.0); HEMATOCRIT 25.1 % (38.2-49.6); HEMOGLOBIN 8.5 g/dL (14.0-18.0); LYMPHOCYTES # (AUTO) 0.9 (1.0-3.2); LYMPHOCYTES % 8.9 % (18.0-39.1); MEAN CORPUSCULAR HEMOGLOBIN 28.2 pg (28-32); MEAN CORPUSCULAR HGB CONC 33.9 g/dL (31-35); MEAN CORPUSCULAR VOLUME 83.4 fL (81-99); MONOCYTES # (AUTO) 0.7 (0.2-0.8); MONOCYTES % 6.8 % (4.4-11.3); NEUTROPHILS # (AUTO) 7.1 (2.1-6.9); NEUTROPHILS % 74.8 % (38.7-80.0); PLATELET COUNT 226 x10e3/uL (140-360); RED BLOOD COUNT 3.01 x10e6/uL (4.3-5.7); RED CELL DISTRIBUTION WIDTH 13.9 % (11.7-14.4); WHITE BLOOD COUNT 9.54 x10e3/uL (4.8-10.8)
[2023-06-09 06:12] LABS: ANION GAP 18.8 mmol/L (8-16); CALCIUM 8.7 mg/dL (8.4-10.2); CREATININE, SERUM 8.17 mg/dL (0.72-1.25); POTASSIUM 4.8 mmol/L (3.5-5.1)
[2023-06-09] MEDS ORDERED: SODIUM CHLORIDE 0.9% 1000ML 2,000 ML ONE (07:19)
[2023-06-09] MEDS: CALCIUM ACETATE 667 MG GELCAP PO SCH ×3 (08:00→17:00)
[2023-06-09] MEDS: FUROSEMIDE 40 MG TAB PO SCH ×2 (08:00→17:27)
[2023-06-09] MEDS: LOSARTAN POTASSIUM 100 MG TAB PO SCH ×2 (09:00→17:28)
[2023-06-09] MEDS: NIFEDIPINE CR 30 MG TAB PO SCH (09:00)
[2023-06-09] MEDS: DOXAZOSIN MESYLATE 2 MG TAB PO SCH ×2 (09:49→17:29)
[2023-06-09] MEDS: HYDRALAZINE HCL 20 MG/ML VIAL IV PRN (10:37)
[2023-06-09] MEDS ORDERED: METOPROLOL TARTRATE INJ 1 MG/ML VIAL IV PRN (12:00)
[2023-06-09] MEDS: Doxycycline IV 100 MG in SODIUM CHLORIDE 0.9% 100 ML IV SCH ×2 (14:55→22:30)
[2023-06-09] MEDS: GUAIFENESIN/DEXTROMETHORPHAN LIQD 5 ML UDC PO PRN (16:24)
[2023-06-09 17:13] LABS: FREE T4 (FREE THYROXINE) 1.27 ng/dL (0.8-1.8); THYROID STIMULATING HORMONE 6.266 uIU/mL (0.350-4.940)
[2023-06-09] MEDS: FOLIC ACID/CYANOCOB/PYRIDOXINE TAB PO SCH (17:28)
[2023-06-10] VITALS: BP 144/68; PULSE 67; RESP 18; TEMP 98.2; O2SAT 97
[2023-06-10 04:00] VITALS: BP 181/87; PULSE 76; RESP 20; TEMP 97.9; O2SAT 99
[2023-06-10] MEDS: LEVOTHYROXINE SODIUM 50 MCG TAB PO SCH ×2 (05:44→05:54)
[2023-06-10 07:50] VITALS: BP 181/87; PULSE 76; RESP 20; TEMP 97.9; O2SAT 99
[2023-06-10] MEDS: CALCIUM ACETATE 667 MG GELCAP PO SCH ×2 (08:00→12:00)
[2023-06-10] MEDS: FUROSEMIDE 40 MG TAB PO SCH (08:00)
[2023-06-10 08:11] VITALS: BP 166/86; PULSE 78; RESP 21; TEMP 98.1; O2SAT 97
[2023-06-10] MEDS ORDERED: Doxycycline IV 100 MG Vial IV ONE (08:32)
[2023-06-10] MEDS: LOSARTAN POTASSIUM 100 MG TAB PO SCH (08:33)
[2023-06-10] MEDS: NIFEDIPINE CR 30 MG TAB PO SCH (08:33)
[2023-06-10] MEDS: DOXAZOSIN MESYLATE 2 MG TAB PO SCH (08:34)
[2023-06-10] MEDS: GUAIFENESIN/DEXTROMETHORPHAN LIQD 5 ML UDC PO PRN (11:06)
[2023-06-10] MEDS: Doxycycline IV 100 MG in SODIUM CHLORIDE 0.9% 100 ML IV SCH (11:30)
[2023-06-10 11:47] VITALS: BP 176/89; PULSE 73; RESP 18; TEMP 98.5; O2SAT 98
[2023-06-10] MEDS ORDERED: DOXYCYCLINE HYCLATE TABLET 100 MG TAB PO SCH (16:00)
[2023-06-18] MEDS ORDERED: CATAPRES-TTS 21 EACH TOP (08:52)
[2023-06-18] MEDS ORDERED: ATORVASTATIN CA40 MG PO (08:52)
[2023-06-18] MEDS ORDERED: PANTOPRAZOLE SO40 MG PO (08:52)
[2023-06-18] MEDS ORDERED: ONDANSETRON ODT4 MG PO (08:52)
[2023-06-18] MEDS ORDERED: SENNA LAX8.6 MG PO (08:52)
== END 2023-06-10 14:57 | disposition home or self-care (01) | DRG 871 ==
LOC: ER 18:22 → ERHOLD 20:01 → MED/SURG 06-08 00:50
PROVIDERS: ADMIT Internal Medicine; ATTEND Internal Medicine
PROC: 3E04329 Introduction of Other Anti-infective into Central Vein, Percutaneous Approach (ICD-10-PCS; 2023-06-07)
PROC: 0W9B3ZZ Drainage of Left Pleural Cavity, Percutaneous Approach (ICD-10-PCS; principal; 2023-06-08)
PROC: 5A1D70Z Performance of Urinary Filtration, Intermittent, Less than 6 Hours Per Day (ICD-10-PCS; 2023-06-09)
DX: A41.9 Sepsis, unspecified organism (principal); I50.31 Acute diastolic (congestive) heart failure; J18.9 Pneumonia, unspecified organism; J86.9 Pyothorax without fistula; N18.6 End stage renal disease; I13.2 Hypertensive heart and chronic kidney disease with heart failure and with stage 5 chronic kidney disease, or end stage renal disease; J90 Pleural effusion, not elsewhere classified; R65.20 Severe sepsis without septic shock; Z99.2 Dependence on renal dialysis; K57.90 Diverticulosis of intestine, part unspecified, without perforation or abscess without bleeding; E03.9 Hypothyroidism, unspecified; D64.9 Anemia, unspecified; E78.5 Hyperlipidemia, unspecified; D50.9 Iron deficiency anemia, unspecified; R00.1 Bradycardia, unspecified; E04.1 Nontoxic single thyroid nodule; K21.9 Gastro-esophageal reflux disease without esophagitis; Z79.899 Other long term (current) drug therapy; Z79.890 Hormone replacement therapy; Z20.822 Contact with and (suspected) exposure to COVID-19
CPT/HCPCS: 32555; 36415; 71045; 71260; 74176; 80048; 80053; 82040; 82550; 82945; 83605; 83615; 83735; 84439; 84443; 84480; 84484; 85025; 85610; 85730; 87070; 87205; 88112; 88305; 89051; 93005; 94799; 99284; C1729; J2543; J7030; J7040; J7050; Q9967; U0002